=== PATIENT | female | born 1995 | race Caucasian/White ===

== ENCOUNTER 2016-12-16 05:28 | Outpatient (CLI) | payer BC ==
[~2016-12-16] VITALS: Ht 175.3 cm; Wt 86.2 kg
[~2016-12-16 05:28] MED LIST: BENZ100C8 PO; BUTA1CAP45 PO; CEPH500C PO; CETI10TA17 PO; CETI10TA20 PO; CLN2C40 PV; CODE-54 PO; CPR500T PO; FAMO20TA5 PO; GFN600TCR PO; HYDR-3583 PO; IBUP-1773 PO; IBUP-30 PO; LEVO500T69 PO; METR500T PO; NAPR220T29 PO; NAPR550T PO; NITR-65 PO; NORG1TAB7 PO; NS.65NA45; OCP; OMEP20TA2 PO; ONDA-42 SL; PHEN200T27 PO; PRD20T PO; PREN1TAB71 PO; RT-COMBINH IH; SCR1T PO; TRAM50TA2 PO; TRIA10.8 NS; allergy med; antacid
[2016-12-21] MEDS ORDERED: NORG1TAB14 PO (09:26)
[2016-12-21] MEDS ORDERED: OXYC-465 PO (09:26)
[2016-12-21] MEDS ORDERED: DOCU100C37 PO (09:26)
[2016-12-21] MEDS ORDERED: DIPH25TA27 PO (09:26)
[2016-12-21] MEDS ORDERED: IBUP-1780 PO (09:26)
== END 2016-12-16 09:51 ==
LOC: PREOP 05:28
PROVIDERS: ATTEND Obstetrics & Gynecology
DX: N80.0 Endometriosis of uterus; D64.9 Anemia, unspecified; R10.2 Pelvic and perineal pain; Z01.818 Encounter for other preprocedural examination

== ENCOUNTER 2016-12-20 11:12 | Day surgery (SDC) | payer BC ==
[~2016-12-20] VITALS: Ht 175.3 cm; Wt 86.2 kg
--- OUTSIDE RECORDS SUMMARY | 2016-12-20 11:21 | XMS REPORT ---
Author NIKO Edgar [facility] eClinicalWorks Address Unknown Phone Unavailable Care Team Providers Care Actuary Name Role Phone NIKO KELLEY Unavailable Allergies, Adverse Reactions, Alerts Substance Reaction Event Type Zithromax Z-amanda Info Not Available Drug Allergy Sulfamethoxazole Info Not Available Drug Allergy Penicillin V Potassium Info Not Available Drug Allergy Keflex Info Not Available Drug Allergy Cephalexin Info Not Available Drug Allergy Amoxicillin Info Not Available Drug Allergy Ranitidine Info Not Available Drug Allergy Problems Problem Type Condition Code Onset Dates Condition Status Problem Tobacco use disorder complicating , childbirth, or the puerperium, unspecified as to episode of care or not applicable 649.00 Active Assessment Obesity E66.9 Active Problem Examination, general medical Z00.00 Active Medications Medication Code System Code Instructions Start Date End Date Status Dosage Cipro [facility] [address]-16 250 MG Orally every 12 hrs May 09, 2015 May 19, 2015 1 tablet Naproxen [facility] [address]-70 500 mg August 24, 2014 take 1 tablet ( 500 mg) by oral route 2 times per day with food Diethylpropion HCl ER [facility] [address]-09 75 MG Orally Once a day 1 tablet Cetirizine HCl [facility] 63523708614 10 MG TAKE ONE TABLET BY MOUTH DAILY Omeprazole [facility] 09255313243 20 MG TAKE ONE CAPSULE BY MOUTH DAILY BEFORE A MEAL Ortho-Cyclen (28) [facility] [address]-66 0.25-35 MG-MCG Orally Once a day Mar 1 tablet Flonase [facility] [address]-92 50 MCG/ACT Nasally Once a day May 09, 2015 1 spray in each nostril Procedures Procedure Coding System Code Date Office Visit, Est Pt., Level 3 CPT-4 47119 May 11, 2015 Vital Signs Date/Time: May 11, 2015 Temperature 98.1 F Weight 189.5 lbs Height 70 in BMI 27.19 Index Blood Pressure Diastolic 76 mmHg Blood Pressure Systolic 114 mmHg Cardiac Monitoring Heart Rate 86 bpm Results No Known Results Summary Purpose eClinicalWorks Submission
--- OUTSIDE RECORDS SUMMARY | 2016-12-20 11:22 | XMS REPORT ---
Author Author NIKO KELLEY [facility] eClinicalWorks Address Unknown Phone Unavailable Care Team Providers Care Plastics Engineering Teacher Name Role Phone NIKO KELLEY CP Unavailable Allergies, Adverse Reactions, Alerts Substance Reaction [...] Condition Code Onset Dates Condition Status Problem Acute sinusitis, unspecified 461.9 Active Problem Tobacco use disorder complicating , childbirth, or the puerperium, unspecified as to episode of care or not applicable 649.00 Active Problem Counseling on substance use and abuse V65.42 Active Problem Urinary tract infection, site not specified 599.0 Active Problem Screening examination for venereal disease V74.5 Active Problem Examination, general medical Z00.00 Active Problem examination or test, positive result V72.42 Active Problem Supervision of other normal V22.1 Active Problem state, incidental V22.2 Active Problem Infections of genitourinary tract in , unspecified as to episode of care 646.60 Active Assessment Obesity E66.9 Active Problem Pain in joint, shoulder region 719.41 Active Problem Cervicalgia 723.1 Active Problem Allergic rhinitis due to pollen 477.0 Active Problem Encounter for removal of intrauterine contraceptive device V25.12 Active Problem Routine follow-up V24.2 Active Problem General counseling for prescription of oral contraceptives V25.01 Active Medications Medication Code System Code Instructions Start Date End Date Status Dosage Naproxen [facility] [address]-09 500 mg August 24, 2014 take 1 tablet ( 500 mg) by oral route 2 times per day with food ZyrTEC NDC 0 10 mg August 24, 2014 1 tablet by Oral route 1 time per day Diethylpropion HCl ER [facility] [address]-85 75 MG Orally Once a day Mar 22, 2015 1 tablet Ortho-Cyclen (28) [facility] [address]-94 0.25-35 MG-MCG Orally Once a day Mar 1 tablet Omeprazole [facility] 05664787703 20 MG TAKE ONE CAPSULE BY MOUTH DAILY BEFORE A MEAL Procedures Procedure Coding System Code Date Office Visit, Est Pt., Level 3 CPT-4 12221 Apr 13, 2015 Vital Signs Date/Time: Apr 13, 2015 Temperature 99.4 F Weight 194.1 lbs Height 70 in BMI 27.85 Index Blood Pressure Diastolic 70 mmHg Blood Pressure Systolic 116 mmHg Cardiac Monitoring Heart Rate 76 bpm Results No Known Results Summary Purpose eClinicalWorks Submission
--- OUTSIDE RECORDS SUMMARY | 2016-12-20 11:22 | XMS REPORT ---
Author Author NIKO KELLEY [facility] eClinicalWorks Address Unknown Phone Unavailable Care Team Providers Care Inventory Coordinator Name Role Phone NIKO KELLEY Unavailable Allergies, Adverse Reactions, Alerts Substance Reaction Event Type Zithromax Z-amanda Info Not Available Drug Allergy Sulfamethoxazole-Trimethoprim Info Not Available Drug Allergy Penicillin V Potassium Info Not Available Drug Allergy Keflex Info Not Available Drug Allergy Cephalexin Info Not Available Drug Allergy Amoxicillin Info Not Available Drug Allergy Ranitidine Info Not Available Drug Allergy Problems Problem Type Condition Code Onset Dates Condition Status Problem Examination, general medical Z00.00 Active Assessment Obesity E66.9 Active Problem Oral contraceptive pill surveillance Z30.41 Active Assessment Allergic rhinitis J30.9 Active Medications Medication Code System Code Instructions Start Date End Date Status Dosage PredniSONE [facility] [address]-69 10 MG Orally twice a day September 19, 2015 September 24, 2015 1 tablet Flonase [facility] [address]-41 50 MCG/ACT Nasally Once a day May 09, 2015 1 spray in each nostril Cyclobenzaprine HCl [facility] [address]-99 10 MG Orally Three times a day 1 tablet Naproxen [facility] [address]-62 500 mg August 24, 2014 take 1 tablet ( 500 mg) by oral route 2 times per day with food Phentermine HCl [facility] [address]-23 37.5 MG Orally Once a day 1 tablet Cetirizine HCl [facility] 19433942508 10 MG TAKE ONE TABLET BY MOUTH DAILY Ibuprofen ND 0 not defined Omeprazole [facility] 59275045074 20 MG TAKE ONE CAPSULE BY MOUTH DAILY BEFORE A MEAL Ortho-Cyclen (28) [facility] [address]-24 0.25-35 MG-MCG Orally Once a day Mar 1 tablet Procedures Procedure Coding System Code Date Office Visit, Est Pt., Level 3 CPT-4 31516 September 19, 2015 Vital Signs Date/Time: September 19, 2015 Temperature 97.8 F Weight 181.0 lbs Height 70 in BMI 25.97 Index Blood Pressure Diastolic 72 mmHg Blood Pressure Systolic 110 mmHg Cardiac Monitoring Heart Rate 74 bpm Results No Known Results Summary Purpose eClinicalWorks Submission
--- OUTSIDE RECORDS SUMMARY | 2016-12-20 11:22 | XMS REPORT ---
Author Author NIKO KELLEY [facility] eClinicalWorks Address Unknown Phone Unavailable Care Team Providers Care Parts Designer Name Role Phone NIKO KELLEY CP Unavailable [...] to episode of care 646.60 Active Assessment Encounter for counseling regarding contraception Z30.9 Active Assessment Examination, general medical Z00.00 Active Assessment Weight gain R63.5 Active Problem Pain in joint, shoulder region 719.41 Active Problem Cervicalgia 723.1 Active Problem Allergic rhinitis due to pollen 477.0 Active Problem Encounter for removal of intrauterine contraceptive device V25.12 Active Problem Routine follow-up V24.2 Active Problem General counseling for prescription of oral contraceptives V25.01 Active Medications Medication Code System Code Instructions Start Date End Date Status Dosage Omeprazole [facility] 10781245280 20 MG TAKE ONE CAPSULE BY MOUTH DAILY BEFORE A MEAL Ortho-Cyclen (28) [facility] [address]-02 0.25-35 MG-MCG Orally Once a day Mar 1 tablet Diethylpropion HCl ER [facility] [address]-07 75 MG Orally Once a day Mar 22, 2015 1 tablet Naproxen [facility] [address]-58 500 mg August 24, 2014 take 1 tablet ( 500 mg) by oral route 2 times per day with food ZyrTEC NDC 0 10 mg August 24, 2014 1 tablet by Oral route 1 time per day Procedures Procedure Coding System Code Date COMPREHEN METABOLIC PANEL CPT-4 82511 Mar 22, 2015 ASSAY THYROID STIM HORMONE CPT-4 90911 Mar 22, 2015 LIPID PANEL CPT-4 15268 Mar 22, 2015 VENIPUNCT, ROUTINE* CPT-4 30962 Mar 22, 2015 Preventive Care Est Pt. Age 18-39 CPT-4 03535 Mar 22, 2015 Vital Signs Date/Time: Mar 22, 2015 Cardiac Monitoring Heart Rate 80 bpm Weight 208.1 lbs Height 70 in BMI 29.86 Index Blood Pressure Diastolic 78 mmHg Blood Pressure Systolic 118 mmHg Results Name Result Date Reference Range Unit Abnormality Flag ROUTINE VENIPUNCTURE Summary Purpose eClinicalWorks Submission
--- OUTSIDE RECORDS SUMMARY | 2016-12-20 11:22 | XMS REPORT ---
Author Author NIKO KELLEY Organization eClinicalWorks Address Unknown Phone Unavailable Care Team Providers Care Furniture Servicer Name Role Phone NIKO KELLEY CP Unavailable [...] Condition Code Onset Dates Condition Status Problem Oral contraceptive pill surveillance Z30.41 Active Problem Examination, general medical Z00.00 Active Problem Overweight (BMI 25.0-29.9) E66.3 Active Assessment Overweight (BMI 25.0-29.9) E66.3 Active Medications Medication Code System Code Instructions Start Date End Date Status Dosage Cyclobenzaprine HCl [facility] [address]-37 10 MG Orally Three times a day 1 tablet Omeprazole [facility] 51152487263 20 MG TAKE ONE CAPSULE BY MOUTH DAILY BEFORE A MEAL Naproxen [facility] [address]-22 500 mg August 24, 2014 take 1 tablet ( 500 mg) by oral route 2 times per day with food Flonase [facility] [address]-18 50 MCG/ACT Nasally Once a day May 09, 2015 1 spray in each nostril Ibuprofen ND 0 not defined Ortho-Cyclen (28) [facility] [address]-85 0.25-35 MG-MCG Orally Once a day Mar 1 tablet Phentermine HCl [facility] [address]-04 37.5 MG Orally Once a day 1 tablet Procedures Procedure Coding System Code Date Office Visit, Est Pt., Level 3 CPT-4 72856 Apr 02, 2016 Vital Signs Date/Time: Apr 02, 2016 Blood Pressure Systolic 120 mmHg Weight 179.0 lbs Height 70 in BMI 25.68 Index Blood Pressure Diastolic 76 mmHg Results No Known Results Summary Purpose eClinicalWorks Submission
--- OUTSIDE RECORDS SUMMARY | 2016-12-20 11:22 | XMS REPORT ---
Author Author NIKO KELLEY Organization eClinicalWorks Address Unknown Phone Unavailable Care Team Providers Care Quill Collector Name Role Phone NIKO KELLEY CP Unavailable [...] Instructions Start Date End Date Status Dosage Cetirizine HCl [facility] 59150801041 10 MG TAKE ONE TABLET BY MOUTH DAILY Omeprazole [facility] 91878545292 20 MG TAKE ONE CAPSULE BY MOUTH DAILY BEFORE A MEAL Ortho-Cyclen (28) [facility] [address]-91 0.25-35 MG-MCG Orally Once a day Mar 1 tablet Flonase [facility] [address]-37 50 MCG/ACT Nasally Once a day May 09, 2015 1 spray in each nostril Diethylpropion HCl ER [facility] [address]-98 75 MG Orally Once a day 1 tablet Naproxen [facility] [address]-94 500 mg August 24, 2014 take 1 tablet ( 500 mg) by oral route 2 times per day with food Procedures Procedure Coding System Code Date Office Visit, Est Pt., Level 3 CPT-4 00232 Jun 13, 2015 Vital Signs Date/Time: Jun 13, 2015 Temperature 97 F Weight 173.2 lbs Height 70 in BMI 24.85 Index Blood Pressure Diastolic 74 mmHg Blood Pressure Systolic 114 mmHg Cardiac Monitoring Heart Rate 80 bpm Results No Known Results Summary Purpose eClinicalWorks Submission
--- OUTSIDE RECORDS SUMMARY | 2016-12-20 11:22 | XMS REPORT ---
Author Author NIKO KELLEY [facility] eClinicalWorks Address Unknown Phone Unavailable Care Team Providers Care Postal Clerk Name Role Phone NIKO KELLEY Unavailable Allergies, [...] Problem Overweight (BMI 25.0-29.9) E66.3 Active Assessment Vaginal discharge N89.8 Active Medications Medication Code System Code Instructions Start Date End Date Status Dosage Cyclobenzaprine HCl [facility] [address]-93 10 MG Orally Three times a day 1 tablet Ibuprofen NDC 0 not defined Diflucan [facility] [address]-18 150 MG Orally Once a day Jan 16, 2016 Jan 19, 2016 1 tablet Naproxen [facility] [address]-63 500 mg August 24, 2014 take 1 tablet ( 500 mg) by oral route 2 times per day with food Omeprazole [facility] 52575634547 20 MG TAKE ONE CAPSULE BY MOUTH DAILY BEFORE A MEAL Flonase [facility] [address]-48 50 MCG/ACT Nasally Once a day May 09, 2015 1 spray in each nostril Phentermine HCl [facility] [address]-22 37.5 MG Orally Once a day January 03, 2016 Jan 31, 2016 1 tablet Flagyl [facility] [address]-68 500 MG Orally 2 times a day Jan 16, 2016 Jan 23, 2016 1 tablet Ortho-Cyclen (28) [facility] [address]-17 0.25-35 MG-MCG Orally Once a day Mar 1 tablet Procedures Procedure Coding System Code Date TRICHOMONAS ASSAY W/OPTIC CPT-4 44351 Jan 16, 2016 KELLER VAG, DNA, DIR PROBE CPT-4 15820 Jan 16, 2016 No Charge CPT-4 65691 Jan 16, 2016 Office Visit, Est Pt., Level 4 CPT-4 70293 Jan 16, 2016 CULTURE, BACTERIA, OTHER CPT-4 49811 Jan 16, 2016 Vital Signs Date/Time: Jan 16, 2016 Cardiac Monitoring Heart Rate 78 bpm Weight 197.0 lbs Height 70 in BMI 28.26 Index Blood Pressure Diastolic 70 mmHg Blood Pressure Systolic 118 mmHg Results No Known Results Summary Purpose eClinicalWorks Submission
--- OUTSIDE RECORDS SUMMARY | 2016-12-20 11:22 | XMS REPORT ---
Author Author NIKO KELLEY Organization eClinicalWorks Address Unknown Phone Unavailable Care Team Providers Care Pneumatic Jacketer Name Role Phone NIKO KELLEY CP Unavailable Allergies No Known Allergies Problems Problem Type Condition Code Onset Dates [...] as to episode of care 646.60 Active Problem Pain in joint, shoulder region 719.41 Active Problem Cervicalgia 723.1 Active Problem Allergic rhinitis due to pollen 477.0 Active Problem Encounter for removal of intrauterine contraceptive device V25.12 Active Problem Routine follow-up V24.2 Active Problem General counseling for prescription of oral contraceptives V25.01 Active Medications No Known Medications Results No Known Results Summary Purpose eClinicalWorks Submission
--- OUTSIDE RECORDS SUMMARY | 2016-12-20 11:23 | XMS REPORT ---
Author Author NIKO KELLEY Organization eClinicalWorks Address Unknown Phone Unavailable Care Team Providers Care Inside Parts Sales Name Role Phone NIKO KELLEY CP Unavailable [...]
--- OUTSIDE RECORDS SUMMARY | 2016-12-20 11:23 | XMS REPORT ---
Author SEBASTIAN Cantrell Organization eClinicalWorks Address Unknown Phone Unavailable Care Team Providers Care Spinning Operator Name Role Phone SEBASTINA COLLINS CP Unavailable Allergies, Adverse Reactions, Alerts Substance [...] to episode of care 646.60 Active Assessment Sinusitis J32.9 Active Problem Pain in joint, shoulder region 719.41 Active Problem Cervicalgia 723.1 Active Problem Allergic rhinitis due to pollen 477.0 Active Problem Encounter for removal of intrauterine contraceptive device V25.12 Active Problem Routine follow-up V24.2 Active Problem General counseling for prescription of oral contraceptives V25.01 Active Medications Medication Code System Code Instructions Start Date End Date Status Dosage Flonase [facility] [address]-28 50 MCG/ACT Nasally Once a day May 09, 2015 1 spray in each nostril Ibuprofen NDC 0 not defined Omeprazole [facility] 17757250045 20 MG TAKE ONE CAPSULE BY MOUTH DAILY BEFORE A MEAL Diethylpropion HCl ER [facility] [address]-17 75 MG Orally Once a day Mar 22, 2015 1 tablet Cipro [facility] [address]-60 250 MG Orally every 12 hrs May 09, 2015 May 19, 2015 1 tablet Naproxen [facility] [address]-05 500 mg August 24, 2014 take 1 tablet ( 500 mg) by oral route 2 times per day with food Ortho-Cyclen (28) [facility] [address]-47 0.25-35 MG-MCG Orally Once a day Mar 1 tablet ZyrTEC [facility] 0 10 mg August 24, 2014 1 tablet by Oral route 1 time per day Cetirizine HCl [facility] 55439434297 10 MG TAKE ONE TABLET BY MOUTH DAILY Procedures Procedure Coding System Code Date Office Visit, Est Pt., Level 3 CPT-4 07711 May 09, 2015 Vital Signs Date/Time: May 09, 2015 Temperature 98.4 F Weight 190.0 lbs Height 70 in BMI 27.26 Index Blood Pressure Diastolic 72 mmHg Blood Pressure Systolic 110 mmHg Cardiac Monitoring Heart Rate 120 bpm Results No Known Results Summary Purpose eClinicalWorks Submission
--- OUTSIDE RECORDS SUMMARY | 2016-12-20 11:23 | XMS REPORT ---
Author Author NIKO KELLEY Organization eClinicalWorks Address Unknown Phone Unavailable Care Team Providers Care Salesperson Household Appliances Name Role Phone NIKO KELLEY CP Unavailable Allergies No Known Allergies Problems Problem Type Condition Code Onset Dates Condition Status Problem Tobacco use disorder complicating , childbirth, or the puerperium, unspecified as to episode of care or not applicable 649.00 Active Problem Examination, general medical Z00.00 Active Medications No Known Medications Results No Known Results Summary Purpose eClinicalWorks Submission
--- OUTSIDE RECORDS SUMMARY | 2016-12-20 11:23 | XMS REPORT ---
Author Author NIKO KELLEY [facility] Address [address] [place] [address] Care Team Providers Care Office Supervisor Name Role Phone NIKO KELLEY Unavailable PROBLEMS Type Condition ICD9-CM Code [id number] Code Onset Dates Condition Status SNOMED Code Problem Overweight (BMI 25.0-29.9) E66.3 Active 200257024 Problem Oral contraceptive pill surveillance Z30.41 Active 957428013 Problem Examination, general medical Z00.00 Active 985852419 Assessment Overweight (BMI 25.0-29.9) E66.3 Feb, Active 211015325 ALLERGIES Substance Reaction Event Type Date Status Zithromax Z-amanda Unknown Drug Allergy Feb, Active Sulfamethoxazole-Trimethoprim Unknown Drug Allergy Feb, Active Penicillin V Potassium Unknown Drug Allergy Feb, Active Keflex Unknown Drug Allergy Feb, Active Cephalexin Unknown Drug Allergy Feb, Active Amoxicillin Unknown Drug Allergy Feb, Active Ranitidine Unknown Drug Allergy Feb, Active SOCIAL HISTORY No smoking Hx information available PLAN OF CARE VITAL SIGNS Height 70 in 2016-02-28 Weight 185.6 lbs 2016-02-28 Heart Rate 70 bpm 2016-02-28 Respiratory Rate 18 2016-02-28 BMI 26.63 kg/m2 2016-02-28 Blood pressure systolic 118 mmHg 2016-02-28 Blood pressure diastolic 76 mmHg 2016-02-28 MEDICATIONS Medication Instructions Dosage Frequency Start Date End Date Duration Status Ibuprofen Active Phentermine HCl 37.5 MG Orally Once a day 1 tablet 24h 28 days Active Flonase 50 MCG/ACT Nasally Once a day 1 spray in each nostril 24h May, Active Ortho-Cyclen (28) 0.25-35 MG-MCG Orally Once a day 1 tablet 24h 14 Mar, 2015 Active Cyclobenzaprine HCl 10 MG Orally Three times a day 1 tablet 8h Active Omeprazole 20 MG TAKE ONE CAPSULE BY MOUTH DAILY BEFORE A MEAL 30 Active Naproxen 500 mg take 1 tablet (500 mg) by oral route 2 times per day with food Aug, Active RESULTS No Results PROCEDURES Procedure Date Ordered Related Diagnosis Body Site Office Visit, Est Pt., Level 3 Feb 28, 2016 IMMUNIZATIONS No Known Immunizations
--- OUTSIDE RECORDS SUMMARY | 2016-12-20 11:23 | XMS REPORT ---
Author Author NIKO KELLEY Organization eClinicalWorks Address Unknown Phone Unavailable Care Team Providers Care Party Plan Sales Agent Name Role Phone NIKO KELLEY CP Unavailable [...] Instructions Start Date End Date Status Dosage Ortho-Cyclen (28) [facility] [address]-45 0.25-35 MG-MCG Orally Once a day Mar 1 tablet Flonase [facility] [address]-08 50 MCG/ACT Nasally Once a day May 09, 2015 1 spray in each nostril Naproxen [facility] [address]-94 500 mg August 24, 2014 take 1 tablet ( 500 mg) by oral route 2 times per day with food Cyclobenzaprine HCl [facility] [address]-29 10 MG Orally Three times a day 1 tablet Phentermine HCl [facility] [address]-90 37.5 MG Orally Once a day Feb 28, 2016 1 tablet Ibuprofen ND 0 not defined Omeprazole [facility] 47182291708 20 MG TAKE ONE CAPSULE BY MOUTH DAILY BEFORE A MEAL Procedures Procedure Coding System Code Date Office Visit, Est Pt., Level 3 CPT-4 99440 Jan 31, 2016 Vital Signs Date/Time: Jan 31, 2016 Cardiac Monitoring Heart Rate 77 bpm Weight 190.4 lbs Height 70 in BMI 27.32 Index Blood Pressure Diastolic 78 mmHg Blood Pressure Systolic 121 mmHg Results No Known Results Summary Purpose eClinicalWorks Submission
--- OUTSIDE RECORDS SUMMARY | 2016-12-20 11:23 | XMS REPORT ---
Author Author SON CONTRERAS [facility] eClinicalWorks Address Unknown Phone Unavailable Care Team Providers Care Customer Service Representative Teacher Name Role Phone SON CONTRERAS Unavailable Allergies, Adverse Reactions, Alerts Substance Reaction [...] Problem Examination, general medical Z00.00 Active Assessment Well woman exam Z01.419 Active Problem Oral contraceptive pill surveillance Z30.41 Active Assessment Dysmenorrhea N94.6 Active Assessment Routine screening for STI (sexually transmitted infection) Z11.3 Active Assessment Encounter for screening for malignant neoplasm of cervix Z12.4 Active Assessment Oral contraceptive pill surveillance Z30.41 Active Medications Medication Code System Code Instructions Start Date End Date Status Dosage Cetirizine HCl [facility] 57727422598 10 MG TAKE ONE TABLET BY MOUTH DAILY Cyclobenzaprine HCl [facility] [address]-63 10 MG Orally Three times a day 1 tablet Naproxen [facility] [address]-30 500 mg August 24, 2014 take 1 tablet ( 500 mg) by oral route 2 times per day with food Omeprazole [facility] 89638524034 20 MG TAKE ONE CAPSULE BY MOUTH DAILY BEFORE A MEAL Diethylpropion HCl ER [facility] [address]-18 75 MG Orally Once a day 1 tablet Ortho-Cyclen (28) [facility] [address]-08 0.25-35 MG-MCG Orally Once a day Mar 1 tablet Flonase [facility] [address]-03 50 MCG/ACT Nasally Once a day May 09, 2015 1 spray in each nostril Procedures Procedure Coding System Code Date URINE TEST CPT-4 45762 Jul 05, 2015 Preventive Care Est Pt. Age 18-39 CPT-4 89453 Jul 05, 2015 SPECIMEN HANDLING CPT-4 13055 Jul 05, 2015 No Charge CPT-4 48944 Jul 05, 2015 Vital Signs Date/Time: Jul 05, 2015 Temperature 97.1 F Weight 187.6 lbs Height 70 in BMI 26.91 Index Blood Pressure Diastolic 76 mmHg Blood Pressure Systolic 115 mmHg Cardiac Monitoring Heart Rate 84 bpm Results Name Result Date Reference Range Unit Abnormality Flag PDF Report ----PDF Report1 [facility] [id number] TEST, URINE (IN HOUSE) ----RESULTS negative [id number] ----Lot # [id number] ----Control + [id number] ----Exp date [id number] PAP TEST, HPV IF ASCUS ----. . [id number] Summary Purpose eClinicalWorks Submission
--- OUTSIDE RECORDS SUMMARY | 2016-12-20 11:24 | XMS REPORT ---
Author ERIC Moluton Organization e[employer] Address Unknown Phone Unavailable Care Team Providers Care Transformer Molder Name Role Phone ERIC ALVARADO CP Unavailable Allergies No Known Allergies Problems Problem Type Condition Code Onset Dates Condition Status Problem Oral contraceptive pill surveillance Z30.41 Active Problem Examination, general medical Z00.00 Active Problem Overweight (BMI 25.0-29.9) E66.3 Active Medications Medication Code System Code Instructions Start Date End Date Status Dosage Ortho-Cyclen (28) [facility] [address]-36 0.25-35 MG-MCG Orally Once a day Mar 1 tablet Results No Known Results Summary Purpose eClinicalWorks Submission
--- OUTSIDE RECORDS SUMMARY | 2016-12-20 11:24 | XMS REPORT ---
Author Author NIKO KELLEY Organization [employer] Address Unknown Phone Unavailable Care Team Providers Care Medical Physicist Name Role Phone NIKO KELLEY CP Unavailable Allergies No Known Allergies Problems Problem Type Condition Code Onset Dates Condition Status Problem Examination, general medical Z00.00 Active Problem Oral contraceptive pill surveillance Z30.41 Active Medications Medication Code System Code Instructions Start Date End Date Status Dosage Fexofenadine HCl [facility] [address]-58 180 MG Orally Once a day September 28, 2015 December 27, 2015 1 tablet as needed Results No Known Results Summary Purpose eClinicalWorks Submission
--- OUTSIDE RECORDS SUMMARY | 2016-12-20 11:24 | XMS REPORT ---
Author Author NIKO KELLEY [facility] Address [address] [place] [address] Care Team Providers Care Melter Caster Name Role Phone NIKO KELLEY Unavailable PROBLEMS Type Condition ICD9-CM Code [id number] Code Onset Dates Condition Status SNOMED Code Problem Overweight (BMI 25.0-29.9) E66.3 Active 294954538 Problem Oral contraceptive pill surveillance Z30.41 Active 203097437 Problem Examination, general medical Z00.00 Active 231099740 Assessment General medical exam Z00.00 Feb, Active 493546006 ALLERGIES Substance Reaction Event Type Date Status [...] OF CARE VITAL SIGNS Height 70 in 2016-02-29 Weight 188.1 lbs 2016-02-29 Heart Rate 72 bpm 2016-02-29 Respiratory Rate 18 2016-02-29 BMI 26.99 kg/m2 2016-02-29 Blood pressure systolic 112 mmHg 2016-02-29 Blood pressure diastolic 70 mmHg 2016-02-29 MEDICATIONS Medication Instructions Dosage Frequency Start Date End Date Duration Status Cyclobenzaprine HCl 10 MG Orally Three times a day 1 tablet 8h Active Naproxen 500 mg take 1 tablet (500 mg) by oral route 2 times per day with food Aug, Active Flonase 50 MCG/ACT Nasally Once a day 1 spray in each nostril 24h May, Active Omeprazole 20 MG TAKE ONE CAPSULE BY MOUTH DAILY BEFORE A MEAL 30 Active Ortho-Cyclen (28) 0.25-35 MG-MCG Orally Once a day 1 tablet 24h 14 Mar, 2015 Active Phentermine HCl 37.5 MG Orally Once a day 1 tablet 24h 28 days Active Ibuprofen Active RESULTS Name Result Date Reference Range TSH 2016-02-29 TSH 1.920 0.450-4.500 CBC 2016-02-29 WBC 8.0 3.4-10.8 RBC 4.75 3.77-5.28 Hemoglobin 12.8 11.1-15.9 Hematocrit 39.5 34.0-46.6 MCV 83 79-97 MCH 26.9 26.6-33.0 MCHC 32.4 31.5-35.7 RDW 14.5 12.3-15.4 Platelets 251 150-379 Neutrophils 82 Lymphs 13 Monocytes 4 Eos 1 Basos 0 Neutrophils (Absolute) 6.5 1.4-7.0 Lymphs (Absolute) 1.1 0.7-3.1 Monocytes(Absolute) 0.3 0.1-0.9 Eos (Absolute) 0.1 0.0-0.4 Baso (Absolute) 0.0 0.0-0.2 Immature Granulocytes 0 Immature Grans (Abs) 0.0 0.0-0.1 LIPID PANEL 2016-02-29 Cholesterol, Total 223 100-199 Triglycerides 97 0-149 HDL Cholesterol 54 >39 VLDL Cholesterol Brian 19 5-40 LDL Cholesterol Calc 150 0-99 CMP 2016-02-29 Glucose, Serum 88 65-99 BUN 5 6-20 Creatinine, Serum 0.78 0.57-1.00 eGFR If NonAfricn Am 108 >59 eGFR If Africn Am 125 >59 BUN/Creatinine Ratio 6 8-20 Sodium, Serum 139 134-144 Potassium, Serum 4.0 3.5-5.2 Chloride, Serum 98 97-108 Carbon Dioxide, Total 23 18-29 Calcium, Serum 9.3 8.7-10.2 Protein, Total, Serum 7.4 6.0-8.5 Albumin, Serum 4.4 3.5-5.5 Globulin, Total 3.0 1.5-4.5 A/G Ratio 1.5 1.1-2.5 Bilirubin, Total 0.4 0.0-1.2 Alkaline Phosphatase, S 67 39-117 AST (SGOT) 18 0-40 ALT (SGPT) 24 0-32 PROCEDURES Procedure Date Ordered Related Diagnosis Body Site LIPID PANEL Feb 29, 2016 COMPREHEN METABOLIC PANEL Feb 29, 2016 ASSAY THYROID STIM HORMONE Feb 29, 2016 COMPLETE CBC W/AUTO DIFF WBC Feb 29, 2016 Preventive Care Est Pt. Age 18-39 Feb 29, 2016 VENIPUNCT, ROUTINE* Feb 29, 2016 IMMUNIZATIONS No Known Immunizations
--- OUTSIDE RECORDS SUMMARY | 2016-12-20 11:24 | XMS REPORT ---
Author Author NIKO KELLEY Organization eClinicalWorks Address Unknown Phone Unavailable Care Team Providers Care County Historian Name Role Phone NIKO KELLEY Unavailable Allergies, [...] Start Date End Date Status Dosage Omeprazole [facility] 40344427207 20 MG TAKE ONE CAPSULE BY MOUTH DAILY BEFORE A MEAL Naproxen [facility] [address]-31 500 mg August 24, 2014 take 1 tablet ( 500 mg) by oral route 2 times per day with food Flonase [facility] [address]-71 50 MCG/ACT Nasally Once a day May 09, 2015 1 spray in each nostril Ibuprofen ND 0 not defined Cyclobenzaprine HCl [facility] [address]-45 10 MG Orally Three times a day 1 tablet Phentermine HCl [facility] [address]-32 37.5 MG Orally Once a day January 03, 2016 Jan 31, 2016 1 tablet Ortho-Cyclen (28) [facility] [address]-60 0.25-35 MG-MCG Orally Once a day Mar 1 tablet Procedures Procedure Coding System Code Date Office Visit, Est Pt., Level 3 CPT-4 65498 January 03, 2016 Vital Signs Date/Time: January 03, 2016 Cardiac Monitoring Heart Rate 70 bpm Weight 196.9 lbs Height 70 in BMI 28.25 Index Blood Pressure Diastolic 70 mmHg Blood Pressure Systolic 110 mmHg Results No Known Results Summary Purpose eClinicalWorks Submission
--- OUTSIDE RECORDS SUMMARY | 2016-12-20 11:24 | XMS REPORT ---
Author Author NIKO KELLEY Organization [employer] Address Unknown Phone Unavailable Care Team Providers Care Evp Business Development Name Role Phone NIKO KELLEY CP Unavailable [...]
--- OUTSIDE RECORDS SUMMARY | 2016-12-20 11:25 | XMS REPORT | Continuity of Care Document ---
Author Author [facility] Address Unknown Phone Unavailable Allergies Active Description Code Type Severity Reaction Onset Reported/Identified Relationship to Patient Clinical Status Yes Amoxicillin Drug Allergy N/A N/A 12/23/2011 Yes Cephalexin Drug Allergy N/A N/A 12/23/2011 Yes Keflex Drug Allergy N/A N/A 12/23/2011 Yes Penicillins Drug Allergy N/A N/A 12/23/2011 Yes Pertussis Vaccine,Fluid Drug Allergy N/A N/A 12/23/2011 Yes ranitidine Drug Allergy N/A N/A 12/23/2011 Yes Sulfa(Sulfonamide Antibiotics) Drug Allergy N/A N/A 12/23/2011 Yes Zithromax Z-Quentin Drug Allergy N/A N/A 12/23/2011 Yes amoxicillin [id number] Drug Allergy Moderate rash 03/01/2012 Yes Cephalexin Monohydrate [id number] Drug Allergy Moderate N/ A 03/01/2012 Yes azithromycin [id number] Drug Allergy Mild N/A 03/01/2012 Yes pertussis vaccine,adsorbed [id number] Drug Allergy Mild N/A 03/01/2012 Yes ranitidine [id number] Drug Allergy Mild N/A 03/01/2012 Yes Sulfa (Sulfonamide Antibiotics) [id number] Drug Allergy Mild N/A 03/01/2012 Medications Problems Date Dx Coded Attending Type Code Diagnosis Diagnosed By 02/03/2008 922.1 CONTUSION OF CHEST WALL 02/03/2008 BURTON HERRERA APRN 922.1 CONTUSION OF CHEST WALL 02/03/2008 BURTON HERRERA APRN 922.1 CONTUSION OF CHEST WALL 02/03/2008 ERIC ALVARADO DO 922.1 CONTUSION OF CHEST WALL 02/03/2008 BURTON HERRERA APRN 922.1 CONTUSION OF CHEST WALL 02/03/2008 BURTON HERRERA APRN 922.1 CONTUSION OF CHEST WALL 02/03/2008 JAVIER CHEMICAL PROCESS ENGINEER, BURTON A 922.1 CONTUSION OF CHEST WALL 02/03/2008 MORRIS ALVARADO DOA K 922.1 CONTUSION OF CHEST WALL 02/03/2008 MORRIS ALVARADO DOA K 922.1 CONTUSION OF CHEST WALL 02/03/2008 MORRIS ALVARADO DOA K 922.1 CONTUSION OF CHEST WALL 02/03/2008 LAUREL PIMENTEL MD 922.1 CONTUSION OF CHEST WALL 02/03/2008 LAUREL PIMENTEL MD 922.1 CONTUSION OF CHEST WALL 02/03/2008 922.1 CONTUSION OF CHEST WALL 02/03/2008 LAUREL PIMENTEL MD 922.1 CONTUSION OF CHEST WALL 02/03/2008 LAUREL PIMENTEL MD 922.1 CONTUSION OF CHEST WALL 02/03/2008 LAUREL PIMENTEL MD 922.1 CONTUSION OF CHEST WALL 02/03/2008 LAUREL PIMENTEL MD 922.1 CONTUSION OF CHEST WALL 02/03/2008 ERIC ALVARADO DO K 922.1 CONTUSION OF CHEST WALL 02/03/2008 JAVIER CHEMICAL PROCESS ENGINEER, BURTON A 922.1 CONTUSION OF CHEST WALL 02/03/2008 VAMSHI GODFREY, MASSIEL Dale 922.1 CONTUSION OF CHEST WALL 02/03/2008 ERIC ALVARADO DO K 922.1 CONTUSION OF CHEST WALL 02/03/2008 THANG ESTEVES APRN 922.1 CONTUSION OF CHEST WALL 02/17/2008 462 PHARYNGITIS ACUTE 02/17/2008 JAVIER CHEMICAL PROCESS ENGINEER, BURTON A 462 PHARYNGITIS ACUTE 02/17/2008 JAVIER CHEMICAL PROCESS ENGINEER, BURTON A 462 PHARYNGITIS ACUTE 02/17/2008 MORRIS ALVARADO DOA K 462 PHARYNGITIS ACUTE 02/17/2008 JAVIER CHEMICAL PROCESS ENGINEER, BURTON A 462 PHARYNGITIS ACUTE 02/17/2008 JAVIER CHEMICAL PROCESS ENGINEER, BURTON A 462 PHARYNGITIS ACUTE 02/17/2008 JAVIER CHEMICAL PROCESS ENGINEER, BURTON A 462 PHARYNGITIS ACUTE 02/17/2008 ERIC ALVARADO DO K 462 PHARYNGITIS ACUTE 02/17/2008 MORRIS ALVARADO DOA K 462 PHARYNGITIS ACUTE 02/17/2008 ERIC ALVARADO DO 462 PHARYNGITIS ACUTE 02/17/2008 MARGARITO GODFREY, LAUREL Buck 462 PHARYNGITIS ACUTE 02/17/2008 MARGARITO GODFREY, LAUREL Buck 462 PHARYNGITIS ACUTE 02/17/2008 462 PHARYNGITIS ACUTE 02/17/2008 MARGARITO GODFREY, LAUREL Buck 462 PHARYNGITIS ACUTE 02/17/2008 MARGARITO GODFREY, LAUREL Buck 462 PHARYNGITIS ACUTE 02/17/2008 MARGARITO GODFREY, LAUREL Buck 462 PHARYNGITIS ACUTE 02/17/2008 MARGARITO GODFREY, LAUREL Buck 462 PHARYNGITIS ACUTE 02/17/2008 ERIC ALVARADO DO 462 PHARYNGITIS ACUTE 02/17/2008 BURTON HERRERA APRN A 462 PHARYNGITIS ACUTE 02/17/2008 VAMSHI GODFREY, MASSIEL Dale 462 PHARYNGITIS ACUTE 02/17/2008 ERIC ALVARADO DO 462 PHARYNGITIS ACUTE 02/17/2008 THANG ESTEVES APRN 462 PHARYNGITIS ACUTE 09/21/2010 Ot 465.9 ACUTE URI NOS 09/21/2010 Ot 704.8 HAIR DISEASES NEC 09/21/2010 Ot 786.2 COUGH 12/23/2011 461.9 SINUSITIS ACUTE 12/23/2011 V65.42 COUNSELING - SMOKING CESSATION 12/23/2011 BURTON HERRERA APRN 461.9 SINUSITIS ACUTE 12/23/2011 BURTON HERRERA APRN V65.42 COUNSELING - SMOKING CESSATION 12/23/2011 BURTON HERRERA APRN A 461.9 SINUSITIS ACUTE 12/23/2011 BURTON HERRERA APRN V65.42 COUNSELING - SMOKING CESSATION 12/23/2011 ERIC ALVARADO DO 461.9 SINUSITIS ACUTE 12/23/2011 ERIC ALVARADO DO V65.42 COUNSELING - SMOKING CESSATION 12/23/2011 BURTON HERRERA APRN 461.9 SINUSITIS ACUTE 12/23/2011 BURTON HERRERA APRN V65.42 COUNSELING - SMOKING CESSATION 12/23/2011 BURTON HERRERA APRN 461.9 SINUSITIS ACUTE 12/23/2011 BURTON HERRERA APRN A V65.42 COUNSELING - SMOKING CESSATION 12/23/2011 BURTON HERRERA APRN A 461.9 SINUSITIS ACUTE 12/23/2011 JAVIERBURTON Dale APRN A V65.42 COUNSELING - SMOKING CESSATION 12/23/2011 ALVARADO DO ERIC K 461.9 SINUSITIS ACUTE 12/23/2011 ALVARADO DO ERIC K V65.42 COUNSELING - SMOKING CESSATION 12/23/2011 ALVARADO DO, ERIC K 461.9 SINUSITIS ACUTE 12/23/2011 ALVARADO DO, ERIC K V65.42 COUNSELING - SMOKING CESSATION 12/23/2011 ALVARADO DO, ERIC K 461.9 SINUSITIS ACUTE 12/23/2011 ALVARADO DO ERIC K V65.42 COUNSELING - SMOKING CESSATION 12/23/2011 LAUREL PIMENTEL MD 461.9 SINUSITIS ACUTE 12/23/2011 LAUREL PIMENTEL MD V65.42 COUNSELING - SMOKING CESSATION 12/23/2011 LAUREL PIMENTEL MD 461.9 SINUSITIS ACUTE 12/23/2011 LAUREL PIMENTEL MD V65.42 COUNSELING - SMOKING CESSATION 12/23/2011 461.9 SINUSITIS ACUTE 12/23/2011 V65.42 COUNSELING - SMOKING CESSATION 12/23/2011 LAUREL PIMENTEL MD 461.9 SINUSITIS ACUTE 12/23/2011 LAUREL PIMENTEL MD V65.42 COUNSELING - SMOKING CESSATION 12/23/2011 LAUREL PIMENTEL MD 461.9 SINUSITIS ACUTE 12/23/2011 LAUREL PIMENTEL MD V65.42 COUNSELING - SMOKING CESSATION 12/23/2011 LAUREL PIMENTEL MD 461.9 SINUSITIS ACUTE 12/23/2011 LAUREL PIMENTEL MD V65.42 COUNSELING - SMOKING CESSATION 12/23/2011 LAUREL PIMENTEL MD 461.9 SINUSITIS ACUTE 12/23/2011 LAUREL PIMENTEL MD V65.42 COUNSELING - SMOKING CESSATION 12/23/2011 ALVARADO MORRIS VELASQUEZA K 461.9 SINUSITIS ACUTE 12/23/2011 ALVARADO DO ERIC K V65.42 COUNSELING - SMOKING CESSATION 12/23/2011 BURTON HERRERA APRN A 461.9 SINUSITIS ACUTE 12/23/2011 BURTON HERRERA APRN A V65.42 COUNSELING - SMOKING CESSATION 12/23/2011 MASSIEL BONDS MD 461.9 SINUSITIS ACUTE 12/23/2011 MASSIEL BONDS MD V65.42 COUNSELING - SMOKING CESSATION 12/23/2011 ERIC ALVARADO DO 461.9 SINUSITIS ACUTE 12/23/2011 ERIC ALVARADO DO V65.42 COUNSELING - SMOKING CESSATION 12/23/2011 THANG ESTEVES APRN 461.9 SINUSITIS ACUTE 12/23/2011 THANG ESTEVES APRN V65.42 COUNSELING - SMOKING CESSATION 03/02/2012 Ot 465.9 ACUTE URI NOS 03/02/2012 Ot 789.09 ABDOMINAL PAIN, OTHER SPECIFIED SITE 07/25/2012 Ot 789.01 ABDOMINAL PAIN, RIGHT UPPER QUADRANT 02/15/2013 DIONI HURTADO Ot 599.0 URIN TRACT INFECTION NOS 02/15/2013 DIONI HURTADO Ot 788.1 DYSURIA 02/17/2013 ALVARO RAMOS DO Ot 599.0 URIN TRACT INFECTION NOS 02/17/2013 ALVARO RAMOS DO Ot 788.20 RETENTION OF URINE NOS 02/22/2013 V25.01 CONTRACEPTION - ORAL CONTRACEPTION 02/22/2013 V25.12 IUD REMOVAL 02/22/2013 BURTON HERRERA APRN A V25.01 CONTRACEPTION - ORAL CONTRACEPTION 02/22/2013 BURTON HERRERA APRN A V25.12 IUD REMOVAL 02/22/2013 BURTON HERRERA APRN A V25.01 CONTRACEPTION - ORAL CONTRACEPTION 02/22/2013 MONICA HERRERA APRNIDI A V25.12 IUD REMOVAL 02/22/2013 ERIC ALVARADO DO V25.01 CONTRACEPTION - ORAL CONTRACEPTION 02/22/2013 ERIC ALVARADO DO V25.12 IUD REMOVAL 02/22/2013 BURTON HERRERA APRN A V25.01 CONTRACEPTION - ORAL CONTRACEPTION 02/22/2013 BURTON HERRERA APRN A V25.12 IUD REMOVAL 02/22/2013 BURTON HERRERA APRN A V25.01 CONTRACEPTION - ORAL CONTRACEPTION 02/22/2013 BURTON HERRERA APRN A V25.12 IUD REMOVAL 02/22/2013 JAVIER LÓPEZ, BURTON A V25.01 CONTRACEPTION - ORAL CONTRACEPTION 02/22/2013 MONICA HERRERA APRNIDI A V25.12 IUD REMOVAL 02/22/2013 ALVARADO DO, ERIC K V25.01 CONTRACEPTION - ORAL CONTRACEPTION 02/22/2013 ALVARADO DO, ERIC K V25.12 IUD REMOVAL 02/22/2013 ALVARADO DO, ERIC K V25.01 CONTRACEPTION - ORAL CONTRACEPTION 02/22/2013 ALVARADO DO, ERIC K V25.12 IUD REMOVAL 02/22/2013 ALVARADO DO, ERIC K V25.01 CONTRACEPTION - ORAL CONTRACEPTION 02/22/2013 ALVARADO DO, ERIC K V25.12 IUD REMOVAL 02/22/2013 MARGARITO GODFREY, LAUREL Buck V25.01 CONTRACEPTION - ORAL CONTRACEPTION 02/22/2013 MARGARITO GODFREY, LAUREL Buck V25.12 IUD REMOVAL 02/22/2013 MARGARITO GODFREY, LAUREL Buck V25.01 CONTRACEPTION - ORAL CONTRACEPTION 02/22/2013 MARGARITO GODFREY, LAUREL Buck V25.12 IUD REMOVAL 02/22/2013 V25.01 CONTRACEPTION - ORAL CONTRACEPTION 02/22/2013 V25.12 IUD REMOVAL 02/22/2013 MARGARITO GODFREY, LAUREL Buck V25.01 CONTRACEPTION - ORAL CONTRACEPTION 02/22/2013 MARGARITO GODFREY, LAUREL Buck V25.12 IUD REMOVAL 02/22/2013 LAUREL PIMENTEL MD V25.01 CONTRACEPTION - ORAL CONTRACEPTION 02/22/2013 LAUREL PIMENTEL MD V25.12 IUD REMOVAL 02/22/2013 LAUREL PIMENTEL MD V25.01 CONTRACEPTION - ORAL CONTRACEPTION 02/22/2013 LAUREL PIMENTEL MD V25.12 IUD REMOVAL 02/22/2013 LAUREL PIMENTEL MD V25.01 CONTRACEPTION - ORAL CONTRACEPTION 02/22/2013 MARGARITO GODFREY, LAUREL Buck V25.12 IUD REMOVAL 02/22/2013 JENNY , ERIC K V25.01 CONTRACEPTION - ORAL CONTRACEPTION 02/22/2013 ALVARADO DO, ERIC K V25.12 IUD REMOVAL 02/22/2013 BURTON HERRERA APRN A V25.01 CONTRACEPTION - ORAL CONTRACEPTION 02/22/2013 BURTON HERRERA APRN A V25.12 IUD REMOVAL 02/22/2013 MASSIEL BONDS MD V25.01 CONTRACEPTION - ORAL CONTRACEPTION 02/22/2013 MASSIEL BONDS MD V25.12 IUD REMOVAL 02/22/2013 ERIC ALVARADO DO V25.01 CONTRACEPTION - ORAL CONTRACEPTION 02/22/2013 ERIC ALVARADO DO V25.12 IUD REMOVAL 02/22/2013 THANG ESTEVES APRN V25.01 CONTRACEPTION - ORAL CONTRACEPTION 02/22/2013 THANG ESTEVES APRN V25.12 IUD REMOVAL 03/16/2013 GREGORIO GODFREY, CARLOS A Ot 461.9 ACUTE SINUSITIS NOS 03/16/2013 GREGORIO GODFREY, CARLOS A Ot 784.0 HEADACHE 03/30/2013 RANDY CEDENO CHEMICAL PROCESS ENGINEER Ot 616.10 VAGINITIS NOS 03/30/2013 RANDY CEDENO CHEMICAL PROCESS ENGINEER Ot 623.5 NONINFECT VAG LEUKORRHEA 04/11/2013 LINETTE WEINER DOA K Ot 599.0 URIN TRACT INFECTION NOS 04/11/2013 REGINE VELASQUEZ ROSA ELENA K Ot 788.1 DYSURIA 04/12/2013 MONICA HERRERA APRNIDI A 599.0 URINARY TRACT INFECTION SITE NOT SPECIFIED 04/12/2013 MONICA HERRERA APRNIDI A 599.0 URINARY TRACT INFECTION SITE NOT SPECIFIED 04/12/2013 MORRIS ALVARADO DOA K 599.0 URINARY TRACT INFECTION SITE NOT SPECIFIED 04/12/2013 MONICA HERRERA APRNIDI A 599.0 URINARY TRACT INFECTION SITE NOT SPECIFIED 04/12/2013 MONICA HERRERA APRNIDI A 599.0 URINARY TRACT INFECTION SITE NOT SPECIFIED 04/12/2013 MONICA HERRERA APRNIDI A 599.0 URINARY TRACT INFECTION SITE NOT SPECIFIED 04/12/2013 MORRIS ALVARADO DOA K 599.0 URINARY TRACT INFECTION SITE NOT SPECIFIED 04/12/2013 MORRIS ALVARADO DOA K 599.0 URINARY TRACT INFECTION SITE NOT SPECIFIED 04/12/2013 MORRIS ALVARADO DOA K 599.0 URINARY TRACT INFECTION SITE NOT SPECIFIED 04/12/2013 LAUREL PIMENTEL MD 599.0 URINARY TRACT INFECTION SITE NOT SPECIFIED 04/12/2013 LAUREL PIMENTEL MD 599.0 URINARY TRACT INFECTION SITE NOT SPECIFIED 04/12/2013 599.0 URINARY TRACT INFECTION SITE NOT SPECIFIED 04/12/2013 LAUREL PIMENTEL MD 599.0 URINARY TRACT INFECTION SITE NOT SPECIFIED 04/12/2013 LAUREL PIMENTEL MD 599.0 URINARY TRACT INFECTION SITE NOT SPECIFIED 04/12/2013 LAUREL PIMENTEL MD 599.0 URINARY TRACT INFECTION SITE NOT SPECIFIED 04/12/2013 LAUREL PIMENTEL MD 599.0 URINARY TRACT INFECTION SITE NOT SPECIFIED 04/12/2013 JENNY VELASQUEZ ERIC K 599.0 URINARY TRACT INFECTION SITE NOT SPECIFIED 04/12/2013 BURTON HERRERA APRN A 599.0 URINARY TRACT INFECTION SITE NOT SPECIFIED 04/12/2013 VAMSHI GODFREY, MASSIEL Dale 599.0 URINARY TRACT INFECTION SITE NOT SPECIFIED 04/12/2013 JENNY VELASQUEZ ERIC K 599.0 URINARY TRACT INFECTION SITE NOT SPECIFIED 04/12/2013 THANG ESTEVES APRN 599.0 URINARY TRACT INFECTION SITE NOT SPECIFIED 06/19/2013 GREGORIO GODFREY, CARLOS Lang Ot 519.11 ACUTE BRONCHOSPASM 06/19/2013 CARLOS PERKINS MD A Ot 786.05 SHORTNESS OF BREATH 07/09/2013 DIONI HURTADO Ot 079.99 VIRAL INFECTION NOS 07/09/2013 DIONI HURTADO Ot 786.2 COUGH 07/19/2013 ALVARADO DO ERIC K V72.42 TEST POSITIVE RESULT 07/19/2013 JAVIER LÓPEZ BURTON A V72.42 TEST POSITIVE RESULT 07/19/2013 JAVIER LÓPEZ BURTON A V72.42 TEST POSITIVE RESULT 07/19/2013 JAVIER LÓPEZ BURTON A V72.42 TEST POSITIVE RESULT 07/19/2013 ALVARADO DO, ERIC K V72.42 TEST POSITIVE RESULT 07/19/2013 ALVARADO DO ERIC K V72.42 TEST POSITIVE RESULT 07/19/2013 ALVARADO DO ERIC K V72.42 TEST POSITIVE RESULT 07/19/2013 LAUREL PIMENTEL MD V72.42 TEST POSITIVE RESULT 07/19/2013 LAUREL PIMENTEL MD V72.42 TEST POSITIVE RESULT 07/19/2013 V72.42 TEST POSITIVE RESULT 07/19/2013 LAUREL PIMENTEL MD V72.42 TEST POSITIVE RESULT 07/19/2013 LAUREL PIMENTEL MD V72.42 TEST POSITIVE RESULT 07/19/2013 LAUREL PIMENTEL MD V72.42 TEST POSITIVE RESULT 07/19/2013 LAUREL PIMENTEL MD V72.42 TEST POSITIVE RESULT 07/19/2013 ALVARADO DO ERCI K V72.42 TEST POSITIVE RESULT 07/19/2013 BURTON HERRERA APRN A V72.42 TEST POSITIVE RESULT 07/19/2013 MASSIEL BONDS MD V72.42 TEST POSITIVE RESULT 07/19/2013 ALVARADO DO ERIC K V72.42 TEST POSITIVE RESULT 07/19/2013 THANG ESTEVES APRN V72.42 TEST POSITIVE RESULT 08/11/2013 BURTON HERRERA APRN A 646.60 COMPL OF - UTI 08/11/2013 BURTON HERRERA APRN A V22.2 INCIDENTAL 08/11/2013 BURTON HERRERA APRN A V74.5 STD SCREEN 08/11/2013 BURTON HERRERA APRN A 646.60 COMPL OF - UTI 08/11/2013 BURTON HERRERA APRN A V22.2 INCIDENTAL 08/11/2013 BURTON HERRERA APRN A V74.5 STD SCREEN 08/11/2013 BURTON HERRERA APRN A 646.60 COMPL OF - UTI 08/11/2013 BURTON HERRERA APRN A V22.2 INCIDENTAL 08/11/2013 BURTON HERRERA APRN A V74.5 STD SCREEN 08/11/2013 ALVARADO DO, ERIC K 646.60 COMPL OF - UTI 08/11/2013 ALVARADO DO, ERIC K V22.2 INCIDENTAL 08/11/2013 ALVARADO DO, ERIC K V74.5 STD SCREEN 08/11/2013 ALVARADO DO, ERIC K 646.60 COMPL OF - UTI 08/11/2013 ALVARADO DO, ERIC K V22.2 INCIDENTAL 08/11/2013 ALVARADO DO, ERIC K V74.5 STD SCREEN 08/11/2013 ALVARADO DO, ERIC K 646.60 COMPL OF - UTI 08/11/2013 ALVARADO DO, ERIC K V22.2 INCIDENTAL 08/11/2013 ALVARADO DO, ERIC K V74.5 STD SCREEN 08/11/2013 LAUREL PIMENTEL MD 646.60 COMPL OF - UTI 08/11/2013 LAUREL PIMENTEL MD V22.2 INCIDENTAL 08/11/2013 LAUREL PIMENTEL MD V74.5 STD SCREEN 08/11/2013 LAUREL PIMENTEL MD 646.60 COMPL OF - UTI 08/11/2013 LAUREL PIMENTEL MD V22.2 INCIDENTAL 08/11/2013 LAUREL PIMENTEL MD V74.5 STD SCREEN 08/11/2013 646.60 COMPL OF - UTI 08/11/2013 V22.2 INCIDENTAL 08/11/2013 V74.5 STD SCREEN 08/11/2013 LAUREL PIMENTEL MD 646.60 COMPL OF - UTI 08/11/2013 LAUREL PIMENTEL MD V22.2 INCIDENTAL 08/11/2013 LAUREL PIMENTEL MD V74.5 STD SCREEN 08/11/2013 LAUREL PIMENTEL MD 646.60 COMPL OF - UTI 08/11/2013 LAUREL PIMENTEL MD V22.2 INCIDENTAL 08/11/2013 LAUREL PIMENTEL MD V74.5 STD SCREEN 08/11/2013 LAUREL PIMENTEL MD 646.60 COMPL OF - UTI 08/11/2013 LAUREL PIMENTEL MD V22.2 INCIDENTAL 08/11/2013 LAUREL PIMENTEL MD V74.5 STD SCREEN 08/11/2013 LAUREL PIMENTEL MD 646.60 COMPL OF - UTI 08/11/2013 LAUREL PIMENTEL MD V22.2 INCIDENTAL 08/11/2013 LAUREL PIMENTEL MD V74.5 STD SCREEN 08/11/2013 ALVARADO DO, ERIC Greco 646.60 COMPL OF - UTI 08/11/2013 ALVARADO DO, ERIC K V22.2 INCIDENTAL 08/11/2013 ALVARADO DO, ERIC K V74.5 STD SCREEN 08/11/2013 BURTON HERRERA APRN 646.60 COMPL OF - UTI 08/11/2013 JAVIER DELACRUZN, BURTON A V22.2 INCIDENTAL 08/11/2013 JAVIER DELACRUZSuyapa BURTON A V74.5 STD SCREEN 08/11/2013 MASSIEL BONDS MD 646.60 COMPL OF - UTI 08/11/2013 VAMSHI GODFREY, MASSIEL Dale V22.2 INCIDENTAL 08/11/2013 MASSIEL BONDS MD V74.5 STD SCREEN 08/11/2013 JENNY VELASQUEZ ERIC K 646.60 COMPL OF - UTI 08/11/2013 ALVARADO DO, ERIC K V22.2 INCIDENTAL 08/11/2013 JENNY VELASQUEZ ERIC K V74.5 STD SCREEN 08/11/2013 THANG ESTEVES APRN 646.60 COMPL OF - UTI 08/11/2013 THANG ESTEVES APRN V22.2 INCIDENTAL 08/11/2013 THANG ESTEVES APRN V74.5 STD SCREEN 08/18/2013 JAVIERMONICA Dale APRNIDI A 649.00 COMPL OF - TOBACCO USE 08/18/2013 JAVIER CHEMICAL PROCESS ENGINEER, BURTON A V22.1 , NORMAL OTHER 08/18/2013 JAVIER CHEMICAL PROCESS ENGINEER, BURTON A 649.00 COMPL OF - TOBACCO USE 08/18/2013 JAVIERSuyapa LÓPEZ BURTON A V22.1 , NORMAL OTHER 08/18/2013 JENNY VELASQUEZ ERIC K 649.00 COMPL OF - TOBACCO USE 08/18/2013 ALVARADO DO, ERIC K V22.1 , NORMAL OTHER 08/18/2013 ALVARADO DO ERIC K 649.00 COMPL OF - TOBACCO USE 08/18/2013 ALVARADO DO, ERIC K V22.1 , NORMAL OTHER 08/18/2013 ALVARADO DO, ERIC K 649.00 COMPL OF - TOBACCO USE 08/18/2013 ALVARADO DO, ERIC K V22.1 , NORMAL OTHER 08/18/2013 LAUREL PIMENTEL MD 649.00 COMPL OF - TOBACCO USE 08/18/2013 LAUREL PIMENTEL MD V22.1 , NORMAL OTHER 08/18/2013 LAUREL PIMENTEL MD 649.00 COMPL OF - TOBACCO USE 08/18/2013 LAUREL PIMENTEL MD V22.1 , NORMAL OTHER 08/18/2013 649.00 COMPL OF - TOBACCO USE 08/18/2013 V22.1 , NORMAL OTHER 08/18/2013 LAUREL PIMENTEL MD 649.00 COMPL OF - TOBACCO USE 08/18/2013 LAUREL PIMENTEL MD V22.1 , NORMAL OTHER 08/18/2013 LAUREL PIMENTEL MD 649.00 COMPL OF - TOBACCO USE 08/18/2013 LAUREL PIMENTEL MD V22.1 , NORMAL OTHER 08/18/2013 LAUREL PIMENTEL MD 649.00 COMPL OF - TOBACCO USE 08/18/2013 LAUREL PIMENTEL MD V22.1 , NORMAL OTHER 08/18/2013 LAUREL PIMENTEL MD 649.00 COMPL OF - TOBACCO USE 08/18/2013 LAUREL IPMENTEL MD V22.1 , NORMAL OTHER 08/18/2013 MORRIS ALVARADO DOA K 649.00 COMPL OF - TOBACCO USE 08/18/2013 MORRIS ALVARADO DOA K V22.1 , NORMAL OTHER 08/18/2013 BURTON HERRERA APRN 649.00 COMPL OF - TOBACCO USE 08/18/2013 BURTON HERRERA APRN A V22.1 , NORMAL OTHER 08/18/2013 MASSIEL BONDS MD 649.00 COMPL OF - TOBACCO USE 08/18/2013 MASSIEL BONDS MD V22.1 , NORMAL OTHER 08/18/2013 MORRIS ALVARADO DOA K 649.00 COMPL OF - TOBACCO USE 08/18/2013 MORRIS ALVARADO DOA K V22.1 , NORMAL OTHER 08/18/2013 THANG ESTEVES APRN 649.00 COMPL OF - TOBACCO USE 08/18/2013 THANG ESTEVES APRN V22.1 , NORMAL OTHER 11/04/2013 MORRIS ALVARADO DOA K 477.0 ALLERGIC RHINITIS DUE TO POLLEN 11/04/2013 JENNY VELASQUEZ ERIC K 477.0 ALLERGIC RHINITIS DUE TO POLLEN 11/04/2013 LAUREL PIMENTEL MD 477.0 ALLERGIC RHINITIS DUE TO POLLEN 11/04/2013 LAUREL PIMENTEL MD 477.0 ALLERGIC RHINITIS DUE TO POLLEN 11/04/2013 477.0 ALLERGIC RHINITIS DUE TO POLLEN 11/04/2013 LAUREL PIMENTEL MD 477.0 ALLERGIC RHINITIS DUE TO POLLEN 11/04/2013 LAUREL PIMENTEL MD 477.0 ALLERGIC RHINITIS DUE TO POLLEN 11/04/2013 LAUREL PIMENTEL MD 477.0 ALLERGIC RHINITIS DUE TO POLLEN 11/04/2013 LAUREL PIMENTEL MD 477.0 ALLERGIC RHINITIS DUE TO POLLEN 11/04/2013 ERIC ALVARADO DO 477.0 ALLERGIC RHINITIS DUE TO POLLEN 11/04/2013 BURTON HERRERA APRN 477.0 ALLERGIC RHINITIS DUE TO POLLEN 11/04/2013 MASSIEL BONDS MD 477.0 ALLERGIC RHINITIS DUE TO POLLEN 11/04/2013 ERIC ALVARADO DO 477.0 ALLERGIC RHINITIS DUE TO POLLEN 11/04/2013 THANG ESTEVES APRN 477.0 ALLERGIC RHINITIS DUE TO POLLEN 01/11/2014 LAUREL PIMENTEL MD Ot 623.5 NONINFECT VAG LEUKORRHEA 01/11/2014 LAUREL PIMENTEL MD Ot 654.73 ABNORM VAGINA-ANTEPARTUM 02/26/2014 LAUREL PIMENTEL MD Ot 644.03 THRT RACHEL LABOR-ANTEPART 03/01/2014 LAUREL PIMENTEL MD, Ot V22.1 SUPERVIS OTH NORMAL PREG 03/05/2014 LAUREL PIMENTEL MD Ot 644.13 THREAT LABOR NEC-ANTEPAR 03/16/2014 LAUREL PIMENTEL MD Ot 648.91 OTH CURR COND-DELIVERED 03/16/2014 LAUREL PIMENTEL MD Ot V02.51 GROUP B STREPT CARRIER/SUSPECTED CARRIER 03/16/2014 LAUREL PIMENTEL MD Ot V27.0 DELIVER-SINGLE LIVEBORN 03/21/2014 MAYRA CHIRINOS MD Ot 786.50 CHEST PAIN NOS 03/21/2014 MAYRA CHIRINOS MD Ot 786.59 CHEST PAIN NEC 04/26/2014 BURTON HERRERA APRN 670.14 PUERPURAL ENDOMETRITIS CONDITION OR COMPLICATION 04/26/2014 MASSIEL BONDS MD 670.14 PUERPURAL ENDOMETRITIS CONDITION OR COMPLICATION 04/26/2014 ERIC ALVARADO DO 670.14 PUERPURAL ENDOMETRITIS CONDITION OR COMPLICATION 04/26/2014 THANG ESTEVES APRN 670.14 PUERPURAL ENDOMETRITIS CONDITION OR COMPLICATION 05/02/2014 JAVIER LÓPEZ BURTON A V24.2 F/U, ROUTINE 05/02/2014 MASSIEL BONDS MD V24.2 F/U, ROUTINE 05/02/2014 ERIC ALVARADO DO V24.2 F/U, ROUTINE 05/02/2014 THANG ESTEVES APRN V24.2 F/U, ROUTINE 05/11/2014 JAVIER BURTON A CHEMICAL PROCESS ENGINEER Ot 649.03 05/11/2014 JAVIER BURTON A CHEMICAL PROCESS ENGINEER Ot V28.81 05/11/2014 JAVIER BURTON A CHEMICAL PROCESS ENGINEER Ot V28.81 05/11/2014 LAUREL PIMENTEL MD Ot V28.81 05/11/2014 JAVIER BURTON A CHEMICAL PROCESS ENGINEER Ot V28.81 05/11/2014 JAVIER BURTON A CHEMICAL PROCESS ENGINEER Ot 649.03 05/11/2014 JAVIER BURTON A CHEMICAL PROCESS ENGINEER Ot V28.81 05/23/2014 JAVIER, BURTON A CHEMICAL PROCESS ENGINEER Ot 649.03 05/23/2014 JAVIER, BURTON A CHEMICAL PROCESS ENGINEER Ot V28.81 05/23/2014 JAVIER BURTON A CHEMICAL PROCESS ENGINEER Ot V28.81 05/23/2014 LAUREL PIMENTEL MD Ot V28.81 05/31/2014 MASSIEL BONDS MD 461.9 SINUSITIS ACUTE 05/31/2014 ERIC ALVARADO DO 461.9 SINUSITIS ACUTE 05/31/2014 THANG ESTEVES APRN 461.9 SINUSITIS ACUTE 06/07/2014 JAVIER BURTON A CHEMICAL PROCESS ENGINEER Ot 649.03 06/07/2014 JAVIER BURTON A CHEMICAL PROCESS ENGINEER Ot V28.81 06/07/2014 JAVIER BURTON A CHEMICAL PROCESS ENGINEER Ot V28.81 06/07/2014 LAUREL PIMENTEL MD Ot V28.81 08/24/2014 ERIC ALVARADO DO 719.41 PAIN IN JOINT INVOLVING SHOULDER REGION 08/24/2014 ERIC ALVARADO DO 723.1 CERVICALGIA 08/24/2014 THANG ESTEVES APRN 719.41 PAIN IN JOINT INVOLVING SHOULDER REGION 08/24/2014 THANG ESTEVES APRN 723.1 CERVICALGIA 09/25/2014 SHAKILA GODFREY, FRIEDA Greco Ot 786.2 COUGH 09/29/2014 BURTON HERRERA CHEMICAL PROCESS ENGINEER Ot 649.03 09/29/2014 BURTON HERRERA CHEMICAL PROCESS ENGINEER Ot V28.81 09/29/2014 BURTON HERRERA CHEMICAL PROCESS ENGINEER Ot V28.81 09/29/2014 MARGARITO GODFREY, LAUREL Buck Ot V28.81 12/04/2014 DIONI HURTADO Ot 535.50 UNSP GASTRITIS GASTRODUODENITIS W/O ME 12/04/2014 DIONI HURTADO Ot 789.06 ABDOMINAL PAIN, EPIGASTRIC 12/04/2014 BURTON HERRERA CHEMICAL PROCESS ENGINEER Ot 649.03 12/04/2014 BURTON HERRERA CHEMICAL PROCESS ENGINEER Ot V28.81 12/04/2014 BURTON HERRERA CHEMICAL PROCESS ENGINEER Ot V28.81 12/04/2014 LAUREL PIMENTEL MD Ot V28.81 12/05/2014 BURTON HERRERA CHEMICAL PROCESS ENGINEER Ot 649.03 12/05/2014 BURTON HERRREA CHEMICAL PROCESS ENGINEER Ot V28.81 12/05/2014 BURTON HERRERA CHEMICAL PROCESS ENGINEER Ot V28.81 12/05/2014 LAUREL PIMENTEL MD Ot V28.81 12/17/2015 BURTON HERRERA CHEMICAL PROCESS ENGINEER Ot 649.03 TOBACCO USE DISOR COMP PREG/CHILDBIRTH/ P 12/17/2015 BURTON HERRERA CHEMICAL PROCESS ENGINEER Ot V28.81 ENCOUNTER FOR ANATOMIC SURVEY 12/17/2015 BURTON HERRERA CHEMICAL PROCESS ENGINEER Ot V28.81 ENCOUNTER FOR ANATOMIC SURVEY 12/17/2015 LAUREL PIMENTEL MD Ot V28.81 ENCOUNTER FOR ANATOMIC SURVEY 12/17/2015 ROSA ELENA WEINER DO Ot G44.309 POST-TRAUMATIC HEADACHE, UNSPECIFIED, NO 12/17/2015 BURTON HERRERA CHEMICAL PROCESS ENGINEER Ot 649.03 TOBACCO USE DISOR COMP PREG/CHILDBIRTH/ P 12/17/2015 BURTON HERRERA CHEMICAL PROCESS ENGINEER Ot V28.81 ENCOUNTER FOR ANATOMIC SURVEY 12/17/2015 BURTON HERRERA CHEMICAL PROCESS ENGINEER Ot V28.81 ENCOUNTER FOR ANATOMIC SURVEY 12/17/2015 LAUREL PIMENTEL MD Ot V28.81 ENCOUNTER FOR ANATOMIC SURVEY 12/18/2015 ROSA ELENA WEINER DO Ot G44.309 POST-TRAUMATIC HEADACHE, UNSPECIFIED, NO 12/19/2015 ROSA ELENA WEINER DO Ot G44.309 POST-TRAUMATIC HEADACHE, UNSPECIFIED, NO 12/16/2016 JUAN GODFREY, DIONY Frey Ot D64.9 ANEMIA, UNSPECIFIED 12/16/2016 JUAN GODFREY, DIONY Frey Ot N80.0 ENDOMETRIOSIS OF UTERUS 12/16/2016 DIONY MARTINEZ MD Ot R10.2 PELVIC AND PERINEAL PAIN 12/16/2016 JUAN GODFREY, DIONY Frey Ot Z01.818 ENCOUNTER FOR OTHER PREPROCEDURAL EXAMIN 12/18/2016 BURTON HERRERA CHEMICAL PROCESS ENGINEER Ot 649.03 TOBACCO USE DISOR COMP PREG/CHILDBIRTH/ P 12/18/2016 BURTON HERRERA CHEMICAL PROCESS ENGINEER Ot V28.81 ENCOUNTER FOR ANATOMIC SURVEY 12/18/2016 BURTON HERRERA APRN Ot V28.81 ENCOUNTER FOR ANATOMIC SURVEY 12/18/2016 MARGARITO GODFREY, LAUREL Buck Ot V28.81 ENCOUNTER FOR ANATOMIC SURVEY Procedures Code Description [place] [address] IUD REMOVAL 02/22 39326 UA W/ CULTURE IF INDICATED 04/12/2013 92635 CULTURE URINE 11/2012 81863 CULTURE URINE 24666 UA W/ CULTURE IF INDICATED 06/24/2013 57348 TEST, URINE (IN-HOUSE) 07/19/2013 03569 UA LONG DIP 08/11 92773 TRICHOMONAS (IN-HOUSE) 08/11/2013 28615 GC/CHLAM PROBE ([facility]) 08/11/2013 82117 CULTURE URINE 12/2013 56945 CULTURE UROGENITAL 08/15/2013 76495 ROUTINE VENIPUNCTURE 08/18/2013 30809 UA OB DIP 2013 26121 US OB - EARLY <14 WEEKS 08/18/2013 83721 SYPHILLIS-STATE LAB 08/18/2013 62167 HIV (STATE LAB) 08/18/2013 91902 ANTIBODY SCREEN (order) 08/18/2013 79556 HEP B SURFACE ANTIGEN (STATE) 08/18/2013 76408 CBC 08/19/2013 96299 TSH 08/19/2013 [id number] ANTIBODY SCREEN (RESULT ONLY) 08/20/2013 15599 BLOOD TYPE/Rh FACTOR 08/20/2013 27054 RUBELLA ANTIBODY, IGG 08/20/2013 75781 UA OB DIP 2013 14601 CULTURE URINE 04/2014 43109 US OB - COMPLETE >14 WEEKS 10/25/2013 23130 UA W/ CULTURE IF INDICATED 11/10/2013 15195 CULTURE URINE 10/2013 74884 UA OB DIP 2013 20956 US OB - FOLLOW UP 12/13/2013 76712 ROUTINE VENIPUNCTURE 01/05/2014 22290 UA OB DIP 2013 48629 CBC 01/06/2014 71316 GLUCOSE АЛЕКСАНДР 1 HOUR 01/06/2014 97290 UA OB DIP 2013 51048 UA OB DIP 2013 18998 UA OB DIP 2013 99828 UA OB DIP 2013 54918 CULTURE GROUP B STREP VAG 02/25/2014 33911 UA OB DIP 2013 49589 UA OB DIP 2013 96.49 OTHER INSTILLATION 03/14/2014 73.6 EPISIOTOMY 2013 24944 TEST, URINE (IN-HOUSE) 05/02/2014 Results Encounters ACCT No. Visit Date/Time Discharge Status Pt. Type Provider Facility Loc./Unit Complaint [id number] 09/29/2014 13:22:00 09/29/2014 23: 59:59 CLS Outpatient THANG ESTEVES APRN [id number] 08/24/2014 10:38:00 08/24/2014 23: 59:59 CLS Outpatient ERIC ALVARADO DO [id number] 05/31/2014 14:25:00 05/31/2014 23: 59:59 CLS Outpatient MASSIEL BONDS MD [id number] 05/02/2014 09:55:00 05/02/2014 23: 59:59 CLS Outpatient BURTON HERRERA APRN [id number] 03/09/2014 15:07:00 03/09/2014 23: 59:59 CLS Outpatient ERIC ALVARADO DO Angus [id number] 03/02/2014 15:38:00 03/02/2014 23: 59:59 CLS Outpatient LAUREL PIMENTEL MD [id number] 02/23/2014 15:05:00 02/23/2014 23: 59:59 CLS Outpatient LAUREL PIMENTEL MD [id number] 02/16/2014 13:51:00 02/16/2014 23: 59:59 CLS Outpatient LAUREL PIMENTEL MD [id number] 02/02/2014 13:58:00 02/02/2014 23: 59:59 CLS Outpatient LAUREL PIMENTEL MD [id number] 01/05/2014 14:44:00 01/05/2014 23: 59:59 CLS Outpatient LAUREL PIMENTEL MD [id number] 12/08/2013 14:14:00 12/08/2013 23: 59:59 CLS Outpatient LAUREL PIMENTEL MD [id number] 11/10/2013 14:06:00 11/10/2013 23: 59:59 CLS Outpatient JENNY VELASQUEZERIC [id number] 11/04/2013 09:53:00 11/04/2013 23: 59:59 CLS Outpatient JENNY VELASQUEZERIC [id number] 10/13/2013 14:31:00 10/13/2013 23: 59:59 CLS Outpatient ERIC ALVARADO DO Angus [id number] 09/15/2013 16:45:00 09/15/2013 23: 59:59 CLS Outpatient MONICA HERRERA APRNDELFINO Lang [id number] 08/18/2013 16:23:00 08/18/2013 23: 59:59 CLS Outpatient MONICA HERRERA APRNDELFINO Lang [id number] 08/11/2013 17:12:00 08/11/2013 23: 59:59 CLS Outpatient MONICA HERRERA APRNDELFINO Lang [id number] 07/19/2013 10:28:00 07/19/2013 23: 59:59 CLS Outpatient ERIC ALVARADO DO [id number] 06/24/2013 13:42:00 06/24/2013 23: 59:59 [facility] Outpatient BURTON HERRERA APRN [id number] 04/12/2013 17:45:00 04/12/2013 23: 59:59 [facility] Outpatient BURTON HERRERA APRN [id number] 01/19/2014 13:51:00 Document Registration [id number] 02/22/2013 14:45:00 Document Registration
[2016-12-20] MEDS ORDERED: ceFAZolin 1,000 MG (ANCEF) VIAL ONE (11:39)
[2016-12-20] MEDS ORDERED: NS (IVPB) 50 ML ONE (11:39)
[2016-12-20] MEDS ORDERED: CATHETER FLUSH 10 ML SYR IV PRN (11:45)
[2016-12-20] MEDS ORDERED: ceFAZolin 1 GM/NS 50 ML IVPB IV ONE ×2 (11:45)
[2016-12-20 11:55] LABS: BASOPHILS # (AUTO) 0.1 10^3/uL (0.0-0.1); BASOPHILS % (AUTO) 1 % (0-10); EOSINOPHILS # (AUTO) 0.1 10^3/uL (0.0-0.3); EOSINOPHILS % (AUTO) 1 % (0-10); LYMPHOCYTES % (AUTO) 39 % (12-44); MEAN CORPUSCULAR HEMOGLOBIN 25 PG (25-34); MEAN CORPUSCULAR HGB CONC 31 G/DL (32-36); MEAN CORPUSCULAR VOLUME 81 FL (80-99); MONOCYTES # (AUTO) 0.6 X 10^3 (0.0-1.0); MONOCYTES % (AUTO) 7 % (0-12); NEUTROPHILS # (AUTO) 4.1 X 10^3 (1.8-7.8); NEUTROPHILS % (AUTO) 53 % (42-75); PLATELET COUNT 250 10^3/uL (130-400); RED BLOOD COUNT 4.66 10^6/uL (4.35-5.85); RED CELL DISTRIBUTION WIDTH 15.7 % (10.0-14.5); WHITE BLOOD COUNT 7.7 10^3/uL (4.3-11.0)
[2016-12-20] MEDS ORDERED: fentaNYL INJECTION 100 MCG/2 ML AMP ONE (12:21)
[2016-12-20] MEDS ORDERED: proPOfol 200 MG/20 ML (DIPRIVAN) VIAL IV ONE (12:21)
[2016-12-20] MEDS ORDERED: MIDAZOLAM 2 MG/2 ML (VERSED) VIAL ONE (12:21)
[2016-12-20] MEDS ORDERED: LIDOCAINE PF 2% 5 ML (XYLOCAINE) VIAL ONE (12:22)
[2016-12-20] MEDS ORDERED: ONDANSETRON 4 MG/2 ML (SDV) Z0FRAN ONE (12:22)
[2016-12-20] MEDS ORDERED: ROCURONIUM 50 MG/5 ML (ZEMURON) VIAL IV ONE (12:22)
[2016-12-20] MEDS ORDERED: DEXAMETHASONE PF 10 MG/ML (DECADRON) VIAL ONE (12:22)
[2016-12-20] MEDS ORDERED: FAMOTIDINE 20MG/2ML IV (PEPCID) IV ONE (12:30)
[2016-12-20] MEDS ORDERED: BUP/EPI 0.25% 1:200,000 (MARCAINE) 10 ML VIAL IJ ONE (12:39)
[2016-12-20] MEDS ORDERED: SEVOFLURANE (ULTANE) 15 ML INHAL SOLN ONE ×7 (12:53→14:37)
[2016-12-20] MEDS ORDERED: LACTATED RINGERS 1,000 ML IV ONE (12:53)
[2016-12-20] MEDS ORDERED: LEVOFLOXACIN 250 MG/50 ML IVPB 50 ML ONE (12:57)
--- NOTE | 2016-12-20 13:03 | Progress Note-Pre Operative ---
Pre-Operative Progress Note H&P Reviewed The H&P was reviewed, patient examined and no changes noted. Date Seen by Provider: Dec 20, 2016 Time Seen by Provider: 13:02 Date H&P Reviewed: Dec 20, 2016 Time H&P Reviewed: 13:02 Pre-Operative Diagnosis: chronic pelvic pain, history of endometriosis, uuterine prolapse, dysmenorr DIONY MARTINEZ MD Dec 20, 2016 1:03 pm
--- NOTE | 2016-12-20 13:04 | Progress Note-Post Operative ---
Post-Operative Progess Note Surgeon (s)/Family Day Care Worker (s) Surgeon DIONY MARTINEZ MD Family Day Care Worker: Teresa Eddy are in Pre-Operative Diagnosis chronic pelvic pain, history of endometriosis, uuterine prolapse, dysmenorr Post-Operative Diagnosis same with pelvic adhesions and pathology pending Procedure & Operative Findings Date of Procedure 12/20/16 Procedure Performed/Findings total laparoscopic hysterectomy with bilateral salpingo-oophorectomy and adhesiolysis and destruction of endometriosis Anesthesia Type Gen. endotracheal Estimated Blood Loss Estimated blood loss (mL): minimal Specimens/Packing Specimens Removed uterus tubes and ovaries Packing: none DIONY MARTINEZ MD Dec 20, 2016 13:04
[2016-12-20] MEDS: LACTATED RINGERS 1,000 ML IV PRN ×2 (13:06→14:20)
[2016-12-20 13:13] VITALS: BP 109/79
[2016-12-20] MEDS ORDERED: LEVOFLOXACIN 250 MG/50 ML IVPB 50 ML IV ONE ×2 (13:15)
[2016-12-20] MEDS ORDERED: OMEP20CA12 PO (13:15)
[2016-12-20] MEDS ORDERED: OXYC-197 PO (13:15)
[2016-12-20] MEDS ORDERED: PATIENT MAY USE OWN MEDS, ALL MC SCH (13:15)
[2016-12-20] MEDS ORDERED: MEPERIDINE (DEMEROL) INJ 100 MG/ML IM PRN (13:15)
[2016-12-20] MEDS ORDERED: GENTAMICIN INJ (FOR COMPOUND) 120 MG in NS (IVPB) 100 ML IV ONE ×4 (13:15)
[2016-12-20] MEDS ORDERED: ESTROGENS CONJ IV 25 MG/5 ML (PREMARIN) VIAL IVP ONE (13:15)
[2016-12-20] MEDS ORDERED: BENZOCAINE/MENTHOL (DERMOPLAST) 56 ML CAN TP PRN (13:15)
[2016-12-20] MEDS ORDERED: PROMETHAZINE INJ 25 MG/ML (PHENERGAN) AMP IM PRN (13:15)
[2016-12-20] MEDS ORDERED: WATER (STERILE) FOR INJ 10 ML BTL INJ ONE (13:15)
[2016-12-20] MEDS ORDERED: ONDANSETRON 4 MG/2 ML (SDV) Z0FRAN IVP PRN ×2 (13:15→14:45)
[2016-12-20] MEDS ORDERED: HYDROmorphone (DILAUDID) 2 MG/ML VIAL ONE (14:32)
[2016-12-20] MEDS ORDERED: morphine INJ 10 MG/ML 1ML (SYR OR VIAL) ONE (14:32)
[2016-12-20] MEDS ORDERED: GLYCOPYRROLATE 0.2 MG/ML (ROBINUL) 2 ML VIAL ONE (14:37)
[2016-12-20] MEDS ORDERED: NEOSTIGMINE (BLOXIVERZ ) 1 MG/1ML 10 ML VIAL ONE (14:37)
[2016-12-20] MEDS ORDERED: MEPERIDINE (DEMEROL) INJ 50 MG/ML IVP PRN (14:45)
[2016-12-20] MEDS ORDERED: HYDROmorphone (DILAUDID) 2 MG/ML VIAL IVP PRN (14:45)
[2016-12-20] MEDS ORDERED: PROMETHAZINE INJ 25 MG/ML (PHENERGAN) AMP IVP PRN (14:45)
[2016-12-20] MEDS: KETOROLAC 30 MG/ML VIAL IVP SCH ×2 (14:47→19:56)
[2016-12-20] MEDS: morphine INJ 10 MG/ML 1ML (SYR OR VIAL) IVP PRN ×2 (14:57→15:01)
[2016-12-20 15:55] VITALS: BP 101/72
[2016-12-20] MEDS: D5 LR IV SOLUTION 1,000 ML IV SCH (17:10)
[2016-12-20] MEDS: oxyCODONE/APAP 10/325MG (PERCOCET 10) TABLET PO PRN ×3 (17:47→21:19)
[2016-12-20 20:00] VITALS: BP 98/65
[2016-12-20] MEDS ORDERED: DOCUSATE SODIUM 100 MG (COLACE) CAP PO ONE (21:16)
[2016-12-20] MEDS: DOCUSATE SODIUM 100 MG (COLACE) CAP PO SCH (21:21)
[2016-12-21 00:15] VITALS: BP 112/66
[2016-12-21] MEDS: KETOROLAC 30 MG/ML VIAL IVP SCH ×2 (02:17→08:08)
[2016-12-21] MEDS: D5 LR IV SOLUTION 1,000 ML IV SCH (02:17)
[2016-12-21] MEDS: oxyCODONE/APAP 10/325MG (PERCOCET 10) TABLET PO PRN ×2 (02:17→06:21)
[2016-12-21 04:45] VITALS: BP 83/52
[2016-12-21] MEDS ORDERED: ESTRADIOL 1 MG TAB (ESTRACE) PO SCH (09:00)
--- NOTE | 2016-12-21 09:23 | Progress Note-Standard ---
Standard Progress Note Progress Notes/Assess & Plan Date Seen by Provider: Dec 21, 2016 Time Seen by Provider: 09:22 Progress/Assessment & Plan this patient is without complaint. She is ambulating, voiding, tolerating fairly well, has good pain control. Patient denies chest pain, denies shortness breath, denies nausea vomiting, denies headache, she does have some itching with the Percocet. Vital Signs Date Time Temp Pulse Resp B/P (MAP) Pulse Ox O2 Delivery O2 Flow Rate FiO2 12/21/16 04:45 97.2 53 18 83/52 99 Room Air 12/21/16 00:15 98.9 85 19 112/66 98 Room Air 12/20/16 20:00 97.9 73 18 98/65 98 Room Air 12/20/16 15:55 97.0 68 20 101/72 99 Room Air 12/20/16 13:13 97.3 46 16 109/79 98 I & O 12/21/16 07:00 Intake Total 3113 ml Output Total 3200 ml Balance -87 ml vital signs are stable. Patient is afebrile. The abdomen is benign. Extreme show no clubbing cyanosis. There is no Homans sign. Assessment and plan postoperative day number 1 doing well. Patient has some itching due to her narcotic for pain control. We'll prescribed Benadryl for that plan otherwise is for discharge home with follow-up in clinic Final Diagnosis chronic pelvic pain/menorrhagia/DD/endometriosis DIONY MARTINEZ MD Dec 21, 2016 9:23 am
[2016-12-21] MEDS ORDERED: IBUPROFEN 800 MG (MOTRIN) TAB PO ONE (09:24)
[2016-12-21] MEDS ORDERED: NORG1TAB14 PO (09:26)
[2016-12-21] MEDS ORDERED: DOCU100C37 PO (09:26)
[2016-12-21] MEDS ORDERED: IBUP-1780 PO (09:26)
[2016-12-21] MEDS ORDERED: OXYC-465 PO (09:26)
[2016-12-21] MEDS ORDERED: DIPH25TA27 PO (09:26)
--- NOTE | 2016-12-21 09:28 | Discharge Instructions ---
Discharge Instructions Discharge Medications New, Converted or Re-Newed RX: RX on Chart Patient Instructions Patient Instructions: as directed Return to The Hospital For: as directed Activity & Diet Discharge Diet: No Restrictions Activity as Tolerated: No Orders-Post D/C & Referrals Follow Up Appt: return to clinic on Friday, December 25, 2016 at 930 a.m. for staple removal Call to make follow up appt. for patient in 4 weeks. Activity: Rest for 24 hours, than as tolerated. Wound Care: May remove Band-Aid tomorrow. Replace as desired. Keep incisions clean and dry. Wash daily with soap and water. Please call in RX to patient pharmacy. Diet: As tolerated-Clear Liquids only if nauseated. May shower or tub bathe as desired. No driving for 24 hours, no alcoholic beverages for 24 hours, and nothing per vagina (no tampons, douching, or penetrational intercoarse) for 8 weeks. Patient to return to the clinic as soon as possible for: Temperature greater than 101F, Severe Pain, Foul discharge from incision or vagina, Excessive Bleeding (more than a period). DIONY MARTINEZ MD Dec 21, 2016 9:28 am
[2016-12-21] MEDS ORDERED: diphenhydrAMINE 25 MG TAB (BENADRYL) PO PRN (09:30)
[2016-12-21] MEDS: DOCUSATE SODIUM 100 MG (COLACE) CAP PO SCH (09:31)
[2016-12-21 09:33] VITALS: BP 104/69
[2016-12-21] MEDS ORDERED: IBUPROFEN 800 MG (MOTRIN) TAB PO SCH (18:00)
--- NOTE | 2016-12-23 10:12 | OPERATIVE REPORT ---
PROCEDURE PHYSICIAN: IDONY MARTINEZ DATE OF PROCEDURE: 12/20/2016 PREOPERATIVE DIAGNOSES: 1. Chronic pelvic pain. 2. Endometriosis likely adenomyosis. 3. Menorrhagia. 4. Uterine prolapse. POSTOPERATIVE DIAGNOSES: 1. Chronic pelvic pain. 2. Endometriosis likely adenomyosis. 3. Menorrhagia. 4. Uterine prolapse. 5. Endometriosis. 6. Extensive adenomyosis. 7. Pelvic adhesions. OPERATIVE PROCEDURE: Total laparoscopic hysterectomy with bilateral salpingo-oophorectomy as well as adhesiolysis. OPERATIVE DESCRIPTION: With the patient in the supine position, under satisfactory general anesthesia, the patient was prepped and draped usual fashion for abdominal and vaginal surgery. The urinary bladder was drained via Walton catheter to dependent drainage. A weighted speculum was placed in the posterior fornix of the vagina. Cervix exposed and grasped anteriorly with single-tooth tenaculum. The uterus sounded to 11 cm of uterine sound. The cervix was then serially dilated with Beck dilators to accommodate a DANIELITO 2 manipulator, which was placed in the usual manner and affixed the cervix with 2 sutures of number 1 Vicryl at the 9 and 12 o'clock positions of the cervix. The instrument used a 6 mm x 8 cm uterine probe and a 35 mm colpotomy ring. The patient was now brought in a low dorsal lithotomy position and attention was turned to the abdomen. A 12 mm incision was made 5 cm superior to the umbilicus. 8 mm incisions were made 9 cm lateral to the umbilicus. All incision sites were infiltrated with 0.25% Marcaine with epinephrine prior to incisions. A Veress needle was placed through the superior midline incision and correct placement confirmed with the water drop test. The abdomen was insufflated with 2.4 liters of carbon dioxide and the Veress needle was removed and a 12 mm Optiview laparoscopic port placed. The right and left lateral side ramsey were transilluminated and 8 mm ports were placed under direct vision. The patient was placed in Trendelenburg, allowing the bowel was spilled up out of pelvis. The operative surgical assistant certified equipment was docked and then operative instruments were placed. Using the vessel sealer on the right and bipolar fenestrated grasper on the left, the pelvis was first examined. 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 There was evidence of tubal sterilization bilaterally. There was endometriosis implants in both ovarian fossae and in the cul-de-sac. The uterus was extensively mottled and patchy and dusky looking consistent with extensive adenomyosis. Both ureters were seen clearly freely peristalsing well out of the way of the intended surgery. The laparoscope was rotated. The appendix was well up on the right side it was not down in the lower colonic gutter on the right and it was covered with bowel and omentum. It was too far remote from the pelvis for evaluation and so it was left alone. Using the vessel sealer, the right tube and ovary were grasped and elevated. The IP ligament was clamped, cauterized, and divided. Using the vessel sealer in a stepwise fashion across the mesovarian, across the round ligament, across the broad ligament and eventually down on the cardinal ligament allowing for removal of the tube and ovary on the right with removal of the uterus eventually. The same procedure performed on the left with the same result. The anterior lower uterine segment peritoneum was now divided with monopolar shannon in place of the vessel sealer. The bladder was dissected clear down off of the cervix and exposing the vaginal wall over the colpotomy ring. The vaginal wall was incised at the 12 o'clock position and that incision was continued circumferentially exposing the entire colpotomy ring through the colpotomy incision. The uterus, tubes and ovaries were then extracted through the vagina. The vaginal cuff was closed with 2 sutures of V-LOC barbed suture using Everett cut needle corrugated fastener driver on the right and a Cobra grasper on the left. The closure was started at the angle of the vagina and care was taken to include the terminus of the pedicles of the uterine arteries and cardinal ligaments on their respective sides for insured hemostasis. The bladder peritoneum was brought back down onto the vaginal cuff with the last several stitches from the suture on the left. Hemostasis was complete. The pelvis was irrigated. With hemostasis assured, the monopolar shear was used to destroy the endometriosis implants in both ovarian fossae on the right uterosacral ligaments and in the cul-de-sac. With all the endometriosis destroyed, with no abnormal pathology and both ureters peristalsing freely, the procedure was terminated. The instruments were removed as were the ports. The abdomen was evacuated of its insufflating and the process of removing the ports. The patient brought out of Trendelenburg. The skin incisions were closed with veronika. the fascia at the supraumbilical incision closed with [id number] suture of 2-0 Vicryl. The speculum was replaced in the vagina examining the vaginal cuff which was completely closed and completely hemostatic. Sponge and needle counts were correct. Estimated blood loss was minimal, certainly less than 50 mL. The patient tolerated the procedure well and was uneventfully awakened from her general anesthesia and transferred to recovery room in stable condition. 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
== END 2016-12-21 11:00 | disposition home or self-care (01) ==
LOC: SDC 11:12 → WS 15:51 → SDC 12-21 11:00
PROVIDERS: ATTEND Obstetrics & Gynecology
DX: N80.1 Endometriosis of ovary (principal); N80.3 Endometriosis of pelvic peritoneum; N92.0 Excessive and frequent menstruation with regular cycle; N81.4 Uterovaginal prolapse, unspecified; N73.6 Female pelvic peritoneal adhesions (postinfective); R10.2 Pelvic and perineal pain; N83.8 Other noninflammatory disorders of ovary, fallopian tube and broad ligament; N83.201 Unspecified ovarian cyst, right side; N83.202 Unspecified ovarian cyst, left side
CPT/HCPCS: 36415; 84703; 85025; 86850; 86900; 86901; 87081; 94664; 96361; 96372; 96374; 96375; 96376

== ENCOUNTER → 2018-06-18 | Outpatient (CLI) | payer BC ==
[~2018-06-18] MED LIST changes: +DIPH25TA27 PO; +DOCU100C37 PO; +IBUP-1780 PO; +NORG1TAB14 PO; +OMEP20CA12 PO; +OXYC-465 PO; +OXYC1TAB87 PO
--- NOTE | 2018-06-18 09:06 | Diagnostic Imaging Report ---
PROCEDURE: CT sinuses without contrast TECHNIQUE: Multiple contiguous axial images were obtained through the sinuses without the use of intravenous contrast. Coronal and sagittal reformations were then performed. INDICATION: Chronic sinusitis. COMPARISON: No prior studies are available for comparison. FINDINGS: The frontal sinus is well aerated. The ethmoid air cells and the sphenoid sinus are clear. Bilateral maxillary sinuses are clear. No mucosal thickening or air-fluid levels are detected. The ostiomeatal complexes are widely patent. There is very slight nasal septal deviation to the left. Mastoid air cells are well aerated. IMPRESSION: No evidence of sinusitis. Dictated by: Dictated on workstation # [id number]
== END ==
LOC: RAD 08:36
PROVIDERS: ATTEND Otolaryngology Otolaryngology/Facial Plastic Surgery
DX: J32.9 Chronic sinusitis, unspecified (principal)
CPT/HCPCS: 70486

== ENCOUNTER 2021-03-08 14:36 | Emergency (ER) | payer BC ==
[~2021-03-08] VITALS: Ht 175.2 cm; Wt 118.0 kg
[~2021-03-08 14:36] MED LIST changes: -NORG1TAB7 PO; +NORG1TAB87 PO; -OMEP20CA12 PO; +OMEP20CA18 PO; -OXYC-465 PO; +OXYC-556 PO
[2021-03-08] MEDS ORDERED: NS IV 1000 ML 1,000 ML IV STA (15:09)
[2021-03-08] MEDS ORDERED: ASPIRIN 81 MG CHEW (CHILDREN'S ASA) PO ONE (15:15)
--- NOTE | 2021-03-08 15:18 | ED Chest Pain ---
General Chief Complaint: Chest Pain Stated Complaint: CP, L SHOULDER PAIN X 3 DAYS Source: patient Exam Limitations: no limitations History of Present Illness Date Seen by Provider: Mar 08, 2021 Time Seen by Provider: 14:58 Initial Comments Here with report of left-sided anterior chest pain that radiates to the left arm. This has been going on for the last 3 days. Reports some lightheadedness and near syncope. Also reports some shortness of air. She did suffer from Covid infection in December and had vaccination in January and early February. Denies ever having anything like this before. Sent here from her primary care office after call apparently. Denies nausea, vomiting, diarrhea or weakness otherwise. Timing/Duration: getting worse, 3-4 days Severity/Quality: mild, moderate, aching Location: central Radiation: arms (Left) Activities at Onset: none Prior CP/Workup: no prior chest pain, no prior cardiac workup Modifying Factors: improves with rest ASA po COUNTERINTELLIGENCE/HUMINT SPECIALIST: No NTG SL COUNTERINTELLIGENCE/HUMINT SPECIALIST: No Associated Symptoms: No abdominal pain, No back pain, No dizziness, No fever/chills, No nausea/vomiting; shortness of breath; No weakness Allergies and Home Medications Allergies Coded Allergies: Cephalexin Monohydrate (Unverified Adverse Reaction, Intermediate, 03/01/12) amoxicillin (Unverified Adverse Reaction, Intermediate, rash, 03/01/12) Sulfa (Sulfonamide Antibiotics) (Unverified Adverse Reaction, Mild, 03/01/12) azithromycin (Unverified Adverse Reaction, Mild, 03/01/12) pertussis vaccine,adsorbed (Unverified Adverse Reaction, Mild, 03/01/12) ranitidine (Unverified Adverse Reaction, Mild, 03/01/12) Patient Home Medication List Home Medication List Reviewed: Yes Cetirizine HCl (Cetirizine HCl) 10 Mg Tablet, 10 MG PO DAILY, (Reported) Entered as Reported by: PEDRO MAX on 12/17/15 1227 Diphenhydramine HCl (Banophen) 25 Mg Tablet, 25 MG PO Q6H PRN for itch Prescribed by: DIONY ROBLERO on 12/21/16 09 Docusate Sodium (Docusate Sodium) 100 Mg Capsule, 100 MG PO BID Prescribed by: DIONY ROBLERO on 12/21/16 09 Ibuprofen (Ibuprofen) 800 Mg Tablet, 800 MG PO Q6HR Prescribed by: DIONY ROBLERO on 12/21/16925 Norgestimate-Ethinyl Estradiol (Sprintec 28 Day Tablet) 1 Each Tablet, 1 EACH PO DAILY Prescribed by: DIONY ROBLERO on 12/21/16925 Omeprazole (Omeprazole) 20 Mg Capsule.dr, 20 MG PO DAILY, (Reported) Entered as Reported by: RUSLAN LORA on 12/20/16 1315 Oxycodone HCl/Acetaminophen (Oxycodone-Acetaminophen 10-325) 1 Each Tablet, 1-2 TAB PO Q4HR PRN for PAIN-MODERATE Prescribed by: DIONY ROBLERO on 12/21/16925 Review of Systems Review of Systems Constitutional: see HPI; No chills, No fever EENTM: No Symptoms Reported Respiratory: See HPI Cardiovascular: See HPI Gastrointestinal: See HPI Genitourinary: No Symptoms Reported Musculoskeletal: joint pain, muscle pain Skin: no symptoms reported All Other Systems Reviewed Negative Unless Noted: Yes Past Cjcfwln-Dlfepl-Vpzfap Hx Patient Social History Tobacco Use?: No Substance use?: No Alcohol Use?: No Immunizations Up To Date Tetanus Booster (TDap): Less than 5yrs PED Vaccines UTD: No Seasonal Allergies Seasonal Allergies: Yes Past Medical History Surgeries: Yes Hysterectomy, Tubal Ligation Respiratory: No Cardiac: No Neurological: No Vertigo Reproductive Disorders: Yes Female Reproductive Disorders: Denies 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 0.0oz. 86.112433lg; 28.1 BMI Method:Stated General Appearance: No Apparent Distress, WD/WN HEENT: PERRL/EOMI, Pharynx Normal Neck: Full Range of Motion, Normal Inspection, Non Tender, Supple Respiratory: Lungs Clear, Normal Breath Sounds Cardiovascular: Regular Rate, Rhythm, No Murmur Gastrointestinal: Non Tender, Soft Extremity: Normal Capillary Refill, Normal Inspection, Normal Range of Motion, Non Tender, No Calf Tenderness Neurologic/Psychiatric: Alert, Oriented x3 Skin: Normal Color, Warm/Dry Progress/Results/Core Measures Results/Orders Lab Results Laboratory Tests Test 03/08/21 14:59 Range/Units White Blood Count 10.1 4.3-11.0 10^3/uL Red Blood Count 4.58 3.80-5.11 10^6/uL Hemoglobin 12.7 11.5-16.0 g/dL Hematocrit 39 35-52 % Mean Corpuscular Volume 86 80-99 fL Mean Corpuscular Hemoglobin 28 25-34 pg Mean Corpuscular Hemoglobin Concent 32 32-36 g/dL Red Cell Distribution Width 13.7 10.0-14.5 % Platelet Count 311 130-400 10^3/uL Mean Platelet Volume 11.6 9.0-12.2 fL Immature Granulocyte % (Auto) 0 % Neutrophils (%) (Auto) 63 42-75 % Lymphocytes (%) (Auto) 29 12-44 % Monocytes (%) (Auto) 6 0-12 % Eosinophils (%) (Auto) 1 0-10 % Basophils (%) (Auto) 1 0-10 % Neutrophils # (Auto) 6.4 1.8-7.8 X 10^3 Lymphocytes # (Auto) 2.9 1.0-4.0 X 10^3 Monocytes # (Auto) 0.6 0.0-1.0 X 10^3 Eosinophils # (Auto) 0.1 0.0-0.3 10^3/uL Basophils # (Auto) 0.1 0.0-0.1 10^3/uL Immature Granulocyte # (Auto) 0.0 0.0-0.1 10^3/uL Prothrombin Time 12.2 12.2-14.7 SEC INR Comment 0.9 0.8-1.4 Activated Partial Thromboplast Time 27 24-35 SEC D-Dimer 0.79 H 0.00-0.49 UG/ML Sodium Level 137 135-145 MMOL/L Potassium Level 3.8 3.6-5.0 MMOL/L Chloride Level 104 98-107 MMOL/L Carbon Dioxide Level 23 21-32 MMOL/L Anion Gap 10 5-14 MMOL/L Blood Urea Nitrogen 10 7-18 MG/DL Creatinine 0.66 0.60-1.30 MG/DL Estimat Glomerular Filtration Rate 107 BUN/Creatinine Ratio 15 Glucose Level 113 H 70-105 MG/DL Calcium Level 9.1 8.5-10.1 MG/DL Corrected Calcium 9.3 8.5-10.1 MG/DL Magnesium Level 2.0 1.6-2.4 MG/DL Total Bilirubin 0.2 0.1-1.0 MG/DL Aspartate Amino Transf (AST/SGOT) 13 5-34 U/L Alanine Aminotransferase (ALT/SGPT) 16 0-55 U/L Alkaline Phosphatase 73 40-136 U/L Myoglobin 19.8 10.0-92.0 NG/ML Total Protein 7.2 6.4-8.2 GM/DL Albumin 3.7 3.2-4.5 GM/DL My Orders Orders - MELBA WHITE MD Cbc With Automated Diff (03/08/21 15:09) Magnesium (03/08/21 15:09) Chest 1 View, Ap/Pa Only (03/08/21 15:09) Ekg Tracing (03/08/21 15:09) Comprehensive Metabolic Panel (03/08/21 15:09) Myoglobin Serum (03/08/21 15:09) Protime With Inr (03/08/21 15:09) Partial Thromboplastin Time (03/08/21 15:09) Monitor-Rhythm Ecg Trace Only (03/08/21 15:09) Lipid Panel (03/09/21 06:00) Ed Iv/Invasive Line Start (03/08/21 15:09) Troponin I (03/08/21 15:09) Aspirin Chewable Tablet (Baby Aspirin Ch (03/08/21 15:15) Ns Iv 1000 Ml (Sodium Chloride 0.9%) (03/08/21 15:09) Fibrin Degradation Products (03/08/21 14:59) Ct Angio Chest W (03/08/21 16:54) Ketorolac Injection (Toradol Injection) (03/08/21 17:00) Iohexol Injection (Omnipaque 350 Mg/Ml 1 (03/08/21 17:15) Received Contrast (Hold Metformin- Contr (03/08/21 17:15) Sodium Chloride Flush (Catheter Flush Sy (03/08/21 17:15) Ns (Ivpb) (Sodium Chloride 0.9% Ivpb Bag (03/08/21 17:15) Orphenadrine Inj (Ed Only) (Norflex Inje (03/08/21 17:44) Medications Given in ED Current Medications Medications Dose Ordered Sig/Fallon Route Start Time Stop Time Status Last Admin Dose Admin Aspirin 324 mg ONCE ONCE PO 03/08/21 15:15 03/08/21 15:16 DC 03/08/21 15:18 324 MG Iohexol 100 ml ONCE ONCE IV 03/08/21 17:15 03/08/21 17:16 DC 03/08/21 17:16 85 ML Sodium Chloride 10 ml NEEDED PRN IV 03/08/21 17:15 03/08/21 17:16 10 ML Sodium Chloride 100 ml ONCE ONCE IV 03/08/21 17:15 03/08/21 17:16 DC 03/08/21 17:16 80 ML Vital Signs/I&O 03/08/21 15:43 Temp 36.7 Pulse 89 Resp 18 B/P (MAP) 122/83 (96) Pulse Ox 98 O2 Delivery Room Air Progress Progress Note : Progress Note Seen and evaluated. IV, labs, EKG and chest x-ray ordered. ASA 324 mg p.o. ordered. Normal saline 1 L bolus. We will check for both cardiac and lung related causes of pain. Monitor patient. 1655: D-dimer is elevated. Given her history, we will order CT angiogram of the chest to rule out pulmonary embolism. This was discussed with the patient who agrees. Monitor patient. 1745: CT angiogram is negative. Pain is actually better after 30 mg of Toradol with respect to the shoulder. She still has a little bit of chest tightness. Also has mild headache. We will give Norflex 60 mg IV. This may be related to cost ochondritis and/or a little bit of pleurisy after Covid. We will go ahead and initiate short course of steroids and she will continue ibuprofen and Tylenol at home. All of this was discussed with the patient and her significant other. Discharged home with return precautions. Patient and family verbalized understanding of instructions and agreement with plan. Initial ECG Impression Date: Mar 08, 2021 Initial ECG Impression Time: 14:58 Initial ECG Rate: 83 Initial ECG Rhythm: Normal Sinus Initial ECG Impression: Normal Initial ECG Comparisson: No Previous ECG Available Comment Sinus rhythm with normal axis. No evidence of ST elevation RI. No previous available for comparison. Interpreted by me. Diagnostic Imaging Diagonstic Imaging: CT Plain Films/CT/US/NM/MRI: chest Comments [facility], [place] NAME: MILADIS RATLIFF [facility] REC#: [id number] PT STATUS: REG ER : 1995 PHYSICIAN: MELBA WHITE MD ADMIT DATE: 03/08/21/ER Signed Date of Exam:03/08/21 CHEST 1 VIEW, AP/PA ONLY INDICATION: Chest pain. EXAMINATION: Chest, 03/08/2021. FINDINGS: Single view chest. The cardiomediastinal silhouette is unremarkable. The pulmonary vasculature is within normal limits. The lungs and pleural spaces are clear. IMPRESSION: No evidence of an acute cardiopulmonary process. Dictated by: Dictated on workstation # [id number] Dict: 03/08/21 1554 Trans: 03/08/21 1645 [id number] Interpreted by: PERRY DODGE MD Electronically signed by: PERRY DODGE MD 03/08/21 1645 Diagonstic Imaging: CT Plain Films/CT/US/NM/MRI: chest Comments [facility], [place] NAME: MILADIS RATLIFF [facility] REC#: [id number] PT STATUS: REG ER : 1995 PHYSICIAN: MELBA WHITE MD ADMIT DATE: 03/08/21/ER Draft Date of Exam:03/08/21 CT ANGIO CHEST W EXAMINATION: CT angiography of the chest. TECHNIQUE: Contrast enhanced thin section helical images were obtained through the chest with intravenous contrast timed for the optimal opacification of the arterial structures per CTA protocol. Post-processing, reconstructions and interpretation of angiographic images of the vessels was performed. 3D MIP reconstructions were performed and reviewed. All CT scans use one or more of the following dose optimizing techniques: automated exposure control, MA and/or KvP adjustment based on a patient size and exam type, or iterative reconstruction. HISTORY: Chest pain and arm pain COMPARISON: 03/21/2014 FINDINGS: There is no pulmonary embolism. There is no edema or pneumonia. No pleural effusion. No pneumothorax. No suspicious nodules. There is no axillary or supraclavicular lymphadenopathy. There is no mediastinal lymphadenopathy. Heart size is normal. There are no coronary artery calcifications. No pericardial effusion. Aorta is normal in caliber. Limited views of the upper abdomen are unremarkable. There are no suspicious osseus lesions. IMPRESSION: 1. No pulmonary embolism, clear lungs Dictated on workstation # [id number] Dict: 03/08/21 1723 Trans: 03/08/21 1726 [facility] [id number] Interpreted by: MARIA ELENA MOROCHO MD Electronically signed by: Departure Impression Primary Impression: Chest wall pain Additional Impression: Left shoulder pain Qualified Codes: M25.512 - Pain in left shoulder Disposition: 01 HOME, SELF-CARE Condition: Improved Departure-Patient Inst. Decision time for Depature: 17:46 Referrals: [facility] [place] Primary Care Physician CARLOS BARCENAS (Family) Primary Care Physician Patient Instructions: Chest Pain (DC), Costochondritis (DC), Shoulder Pain (DC) Add. Discharge Instructions: All discharge instructions reviewed with patient and/or family. Voiced understanding. You may take ibuprofen 600 mg every 8 hours as needed for pain. You may also take Tylenol/acetaminophen 1000 mg every 8 hours as needed for pain. Take other medications as directed. Follow-up with your doctor in a few days for recheck. Return for worse pain, fever, vomiting, weakness, breathing problems or other concerns as needed. Scripts Prednisone (Prednisone) 20 Mg Tab 40 MG PO DAILY, #10 TAB 0 Refills Prov: MELBA WHITE MD 03/08/21 Copy Copies To 1: TOBY SAGE MD, TIMOTHY D MD Mar 08, 2021 15:18
[2021-03-08 15:24] LABS: ALBUMIN 3.7 GM/DL (3.2-4.5); POTASSIUM 3.8 MMOL/L (3.6-5.0)
[2021-03-08 15:25] LABS: CALCIUM 9.1 MG/DL (8.5-10.1); FIBRIN DEGRADATION PRODUCTS 0.79 UG/ML (0.00-0.49); INR 0.9 (0.8-1.4); PROTHROMBIN TIME PATIENT 12.2 SEC (12.2-14.7)
[2021-03-08 15:27] LABS: BASOPHILS # (AUTO) 0.1 10^3/uL (0.0-0.1); BASOPHILS % (AUTO) 1 % (0-10); EOSINOPHILS # (AUTO) 0.1 10^3/uL (0.0-0.3); EOSINOPHILS % (AUTO) 1 % (0-10); HEMATOCRIT 39 % (35-52); HEMOGLOBIN 12.7 g/dL (11.5-16.0); LYMPHOCYTES # (AUTO) 2.9 X 10^3 (1.0-4.0); LYMPHOCYTES % (AUTO) 29 % (12-44); MEAN CORPUSCULAR HEMOGLOBIN 28 pg (25-34); MEAN CORPUSCULAR HGB CONC 32 g/dL (32-36); MEAN CORPUSCULAR VOLUME 86 fL (80-99); MEAN PLATELET VOLUME 11.6 fL (9.0-12.2); MONOCYTES # (AUTO) 0.6 X 10^3 (0.0-1.0); MONOCYTES % (AUTO) 6 % (0-12); NEUTROPHILS # (AUTO) 6.4 X 10^3 (1.8-7.8); NEUTROPHILS % (AUTO) 63 % (42-75); PLATELET COUNT 311 10^3/uL (130-400); TOTAL PROTEIN 7.2 GM/DL (6.4-8.2); WHITE BLOOD COUNT 10.1 10^3/uL (4.3-11.0)
[2021-03-08 15:28] LABS: BILIRUBIN,TOTAL 0.2 MG/DL (0.1-1.0)
[2021-03-08 15:30] LABS: CREATININE SERUM 0.66 MG/DL (0.60-1.30)
--- NOTE | 2021-03-08 15:57 | Diagnostic Imaging Report ---
INDICATION: Chest pain. EXAMINATION: Chest, 03/08/2021. FINDINGS: Single view chest. The cardiomediastinal silhouette is unremarkable. The pulmonary vasculature is within normal limits. The lungs and pleural spaces are clear. IMPRESSION: No evidence of an acute cardiopulmonary process. Dictated by: Dictated on workstation # [id number]
[2021-03-08] MEDS ORDERED: KETOROLAC 30 MG/ML VIAL IVP STA (17:00)
[2021-03-08] MEDS ORDERED: HOLD METFORMIN - RECEIVED CONTRAST 20 ML VIAL IV SCH (17:15)
[2021-03-08] MEDS ORDERED: CATHETER FLUSH 10 ML SYR IV PRN (17:15)
[2021-03-08] MEDS ORDERED: NS 100 ML (IVPB) BAG IV ONE (17:15)
[2021-03-08] MEDS ORDERED: IOHEXOL 350 MG/ML 100 ML (OMNIPAQUE 350) VIAL IV ONE (17:15)
--- NOTE | 2021-03-08 17:26 | Diagnostic Imaging Report ---
EXAMINATION: CT angiography of the chest. TECHNIQUE: Contrast enhanced thin section helical images were obtained through the chest with intravenous contrast timed for the optimal opacification of the arterial structures per CTA protocol. Post-processing, reconstructions and interpretation of angiographic images of the vessels was performed. 3D MIP reconstructions were performed and reviewed. All CT scans use one or more of the following dose optimizing techniques: automated exposure control, MA and/or KvP adjustment based on a patient size and exam type, or iterative reconstruction. HISTORY: Chest pain and arm pain COMPARISON: 03/21/2014 FINDINGS: There is no pulmonary embolism. There is no edema or pneumonia. No pleural effusion. No pneumothorax. No suspicious nodules. There is no axillary or supraclavicular lymphadenopathy. There is no mediastinal lymphadenopathy. Heart size is normal. There are no coronary artery calcifications. No pericardial effusion. Aorta is normal in caliber. Limited views of the upper abdomen are unremarkable. There are no suspicious osseus lesions. IMPRESSION: 1. No pulmonary embolism, clear lungs Dictated by: Dictated on workstation # [id number]
[2021-03-08] MEDS ORDERED: ORPHENADRINE 60 MG/2 ML (NORFLEX) AMP (ED ONLY) IV STA (17:44)
[2021-03-08] MEDS ORDERED: PRD20T PO (17:47)
[2021-03-08 18:52] VITALS: BP 128/92
== END 2021-03-08 18:01 | disposition home or self-care (01) ==
LOC: EDUNIT# 14:36 → ER 14:38
DX: R07.89 Other chest pain (principal); M25.512 Pain in left shoulder; R51.9 Headache, unspecified; K21.9 Gastro-esophageal reflux disease without esophagitis; Z86.16 Personal history of COVID-19; Z79.899 Other long term (current) drug therapy
CPT/HCPCS: 36415; 71045; 71275; 80053; 83735; 83874; 85025; 85379; 85610; 85730; 93005; 93041; 96374; 96375

== ENCOUNTER → 2021-03-30 | Outpatient (CLI) | payer BC | LOC: CARD 14:00 | PROVIDERS: ATTEND Internal Medicine Cardiovascular Disease | DX: R07.9 Chest pain, unspecified (principal) | CPT/HCPCS: 93306 ==

== ENCOUNTER 2021-04-26 09:00 | Outpatient (RCR) | payer BC ==
--- NOTE | 2021-05-24 11:59 | 30 Day Event Recorder ---
30-DAY EVENT RECORDER 30-DAY EVENT RECORDER DATE OF PROCEDURE: 04/26/2021-05/03/2021. INDICATION: Palpitation. PROCEDURE: A 30-day event recorder was obtained for a total of 7 days. 29 rhythm strips were presented for review. The study quality is adequate. RESULTS: 1. The baseline tracing demonstrates sinus rhythm at a heart rate of 78 bpm. 2. During this study the patient was in sinus rhythm with intermittent sinus bradycardia and sinus tachycardia with heart rates ranging from 46-148 bpm with no significant arrhythmias identified. 3. There were 15 patient triggered events that correlated to sinus rhythm and sinus tachycardia with heart rates ranging from 62-148 bpm with no arrhythmias. If the patient was at rest during the episodes of sinus tachycardia, this finding could represent syndrome of inappropriate tachycardia. IMPRESSION: 1. This is a 30-day event recorder that was obtained for total of 7 days. 2. During this study the patient was in sinus rhythm with intermittent sinus bradycardia and sinus tachycardia with heart rates ranging from 46-148 bpm with no significant arrhythmias identified. 3. There were 15 patient triggered events that correlated to sinus rhythm and sinus tachycardia with heart rates ranging from 62-148 bpm with no arrhythmias. If the patient was at rest during the episodes of sinus tachycardia, this finding could represent syndrome of inappropriate tachycardia. Certain portions of this document may have been dictated utilizing voice recognition technology. Inherent to this technology, typographical and grammatical errors may exist. As much as I am diligent to identify and correct these mistakes, some errors may remain in the document. CARLOS ELENA JR, MD May 24, 2021 11:59
[2021-06-06] MEDS ORDERED: FLUT9.9S NS (11:15)
[2021-06-06] MEDS ORDERED: FEXO180T84 PO (11:15)
[2021-06-06] MEDS ORDERED: MONT-40 PO (11:15)
[2021-06-06] MEDS ORDERED: PANT40TA52 PO (11:15)
== END 2021-06-08 ==
LOC: CARD 09:00
PROVIDERS: ATTEND Internal Medicine Cardiovascular Disease
DX: R00.2 Palpitations (principal)
CPT/HCPCS: 93270

== ENCOUNTER → 2021-06-04 | Outpatient (CLI) | payer BC ==
[~2021-06-04] MED LIST changes: +FEXO180T84 PO; +FLUT9.9S NS; +MONT-40 PO; +PANT40TA52 PO; +RT-ALBUTEROL SULF 2.5 MG/3 ML PRE-MIX VIAL INH ONE
== END ==
LOC: RT 13:00
PROVIDERS: ATTEND Internal Medicine Cardiovascular Disease
DX: R06.00 Dyspnea, unspecified (principal)
CPT/HCPCS: 94060; 94621; 94726; 94729

== ENCOUNTER 2021-06-07 05:27 | Outpatient (RCR) | payer BC ==
[~2021-06-07] VITALS: Ht 177.8 cm; Wt 116.6 kg
[~2021-06-07 05:27] MED LIST changes: -RT-ALBUTEROL SULF 2.5 MG/3 ML PRE-MIX VIAL INH ONE
== END 2021-06-07 08:59 | disposition home or self-care (01) ==
LOC: PREOP 05:27
PROVIDERS: ATTEND Surgery
DX: Z01.812 Encounter for preprocedural laboratory examination (principal); R10.13 Epigastric pain; Z20.822 Contact with and (suspected) exposure to COVID-19
CPT/HCPCS: 87635

== ENCOUNTER 2021-06-12 12:37 | Day surgery (SDC) | payer BC ==
[~2021-06-12] VITALS: Ht 178 cm; Wt 117.0 kg
[2021-06-12] MEDS ORDERED: LACTATED RINGERS 1,000 ML IV ONE (12:39)
[2021-06-12] MEDS ORDERED: LACTATED RINGERS 1,000 ML IV STA (12:40)
[2021-06-12] MEDS ORDERED: HURRICAINE EXT TUBE (BENZOCAINE) XX PRN (12:45)
--- NOTE | 2021-06-12 12:50 | Progress Note-Pre Operative ---
Pre-Operative Progress Note H&P Reviewed The H&P was reviewed, patient examined and no changes noted. Date Seen by Provider: Jun 12, 2021 Time Seen by Provider: 12:50 Date H&P Reviewed: Jun 12, 2021 Time H&P Reviewed: 12:50 Pre-Operative Diagnosis: epigastric abd pain ALFREDO CENTENO DO Jun 12, 2021 12:50
[2021-06-12 13:05] VITALS: BP 129/113
[2021-06-12] MEDS ORDERED: proPOfol 200 MG/20 ML (DIPRIVAN) VIAL IV ONE ×2 (13:28→13:36)
--- NOTE | 2021-06-12 13:42 | Progress Note-Post Operative ---
Post-Operative Progess Note Surgeon (s)/Drop Board Worker (s) Surgeon ALFREDO CENTENO DO Drop Board Worker: NA Pre-Operative Diagnosis epigastric abd pain Post-Operative Diagnosis slight gastritis Procedure & Operative Findings Date of Procedure 06/12/21 Procedure Performed/Findings EGD with biopsies Anesthesia Type per MANAGER SAFE Estimated Blood Loss Estimated blood loss (mL): scant Specimens/Packing Specimens Removed antrum, body, ge ALFREDO CENTENO DO Jun 12, 2021 13:42
--- NOTE | 2021-06-12 13:44 | Discharge Inst-Simple/Standard ---
Discharge Inst-Standard Patient Instructions/Follow Up Plan of Care/Instructions/FU: 2 weeks Mimi Activity as Tolerated: Yes Discharge Diet: Regular Diet ALFREDO CENTENO DO Jun 12, 2021 13:44
[2021-06-12 13:45] VITALS: BP 135/72
[2021-06-12 13:50] VITALS: BP 108/54
--- NOTE | 2021-06-12 13:53 | Anesthesia-General Post-Op ---
MAC Patient Condition Mental Status/LOC: Same as Preop Cardiovascular: Satisfactory Nausea/Vomiting: Absent Respiratory: Satisfactory Pain: Controlled Complications: Absent Post Op Complications Complications None Follow Up Care/Instructions Patient Instructions None needed. Anesthesiology Discharge Order Discharge Order Patient is doing well, no complaints, stable vital signs, no apparent adverse anesthesia problems. No complications reported per nursing. PATRICIA CHANDLER CRNA Jun 12, 2021 13:53
[2021-06-12 14:05] VITALS: BP 108/72
[2021-06-12 14:18] VITALS: BP 108/72
--- NOTE | 2021-06-12 17:55 | OPERATIVE REPORT ---
DATE OF SERVICE: 06/12/2021 PREOPERATIVE DIAGNOSIS: Epigastric abdominal pain. POSTOPERATIVE DIAGNOSIS: Slight gastritis. PROCEDURE PERFORMED: EGD with biopsies. SURGEON: Alfredo Le DO. ANESTHESIA: Per CHIP LOFT WORKER. ESTIMATED BLOOD LOSS: Scant. COMPLICATIONS: None. INDICATIONS FOR PROCEDURE: The patient is a 25-year-old female, who has been having epigastric abdominal pain. She understands risks and benefits of the procedure and wishes to proceed. Consent was signed in the chart. DESCRIPTION OF PROCEDURE: The patient was taken to the endoscopy suite and placed in a left lateral recumbent position. A timeout was performed. Scope was inserted in mouth, down the esophagus, stomach and into the duodenum without difficulty. There were no polyps, masses or ulcerations within the duodenum. Scope was slowly retracted back into the stomach, where it was further insufflated. Evidence of some slight gastritis was present. Biopsy of the antrum was obtained. Biopsy of the body was obtained. Scope was retroflexed noting no other pathology. Scope was returned to its normal position, slowly withdrawn to the distal esophagus. Biopsy of the GE junction was obtained. Scope was then slowly retracted back. No polyps, masses or ulcerations. Scope was slowly retracted back until completely removed noting no other pathology. The patient tolerated the procedure well without any complications and taken to the recovery room in a stable condition. RECOMMENDATIONS: The patient will follow up on biopsies in two weeks. Further recommendations pending biopsy results. Continue on current medications. CC: GARY Mora - requested, unable to deliver. Job ID: [id number] DocumentID: [id number] Dictated Date: 06/12/2021 13:46:35 Licensed Practical Nurse Date: 06/12/2021 17:54:15 Dictated By: ALFREDO LE DO
== END 2021-06-12 14:17 | disposition home or self-care (01) ==
LOC: ENDO 12:37
PROVIDERS: ATTEND Surgery
DX: K29.50 Unspecified chronic gastritis without bleeding (principal); K21.9 Gastro-esophageal reflux disease without esophagitis; Z79.899 Other long term (current) drug therapy; Z87.891 Personal history of nicotine dependence; Z80.9 Family history of malignant neoplasm, unspecified
CPT/HCPCS: 88305

== ENCOUNTER → 2021-06-14 | Outpatient (CLI) | payer BC ==
[~2021-06-14] VITALS: Ht 172 cm; Wt 113.0 kg
[~2021-06-14] MED LIST changes: +CATHETER FLUSH 10 ML SYR IV PRN
[2021-06-14 09:14] VITALS: BP 121/79
--- NOTE | 2021-06-14 15:23 | NUCLEAR STRESS TEST ---
TREADMILL NUCLEAR STRESS TEST Date of procedure: 06/14/2021. Primary care provider: GARY Mora. Admitting physician: Laz Beltre Jr., MD. INDICATION: Chest pain. BASELINE ELECTROCARDIOGRAM: Sinus rhythm with low voltage in the precordial leads. STRESS TEST PROCEDURE: The patient was exercised for a total of 5 minutes and 0 seconds of the standard Solo protocol achieving a maximum MET level of 7. The resting heart rate was 67 bpm and the peak heart rate was 179 bpm, which represents 92% of the maximum predicted heart rate. The resting blood pressure was 132/91 mmHg and the peak blood pressure was 156/56 mmHg. This represents a normal heart rate and a normal blood pressure response to exercise. The test was stopped due to fatigue. There was no chest discomfort during the test. There were no arrhythmias during the test. There were no significant stress induced electrocardiogram changes. The patient exhibited fair exercise capacity for age. NUCLEAR PROCEDURE: The patient was administered 10.6 mCi of intravenous technetium 99m Tetrofosmin at rest for the rest images. The patient was subseq uently administered 30.3 mCi of intravenous technetium 99 M Tetrofosmin at peak stress for the stress images. Following an appropriate wait after each injection, imaging was obtained. The images were subsequently processed and reformatted in the usual views. Gated imaging was obtained. The image quality was adequate but with gastrointestinal and breast attenuation artifact. CT attenuation correction was used as a adjunct to standard imaging. Both the corrected and uncorrected images were reviewed for interpretation. NUCLEAR RESULTS: There was normal myocardial perfusion in all segments, other than breast attenuation artifact, without evidence of infarction or ischemia. There was normal left ventricular chamber size with an end-diastolic volume of 60 mL and an end-systolic volume of 20 mL. There was no evidence of transient ischemic dilatation. The TID ratio was 0.93. There was normal wall motion in all segments with a calculated ejection fraction of 66%. IMPRESSION: 1. Normal heart rate and blood pressure response to exercise. 2. There was no exercise-induced chest discomfort, arrhythmias, or electrocardiogram changes during the test. 3. The patient exhibited fair exercise capacity for age at 5 minutes of the Solo protocol. 4. There was normal myocardial perfusion in all segments, other than breast attenuation artifact, without evidence of infarction or ischemia. 5. There was normal wall motion in all segments with a calculated ejection fraction of 66%. Certain portions of this document may have been dictated utilizing voice recognition technology. Inherent to this technology, typographical and grammatical errors may exist. As much as I am diligent to identify and correct these mistakes, some errors may remain in the document. LAZ BELTRE JR, MD Jun 14, 2021 15:22
== END ==
LOC: CARD 08:15
PROVIDERS: ATTEND Internal Medicine Cardiovascular Disease
DX: R07.9 Chest pain, unspecified (principal)
CPT/HCPCS: 78452; 93017; A9502

== ENCOUNTER → 2021-06-21 | Outpatient (CLI) | payer BC ==
[~2021-06-21] MED LIST changes: -CATHETER FLUSH 10 ML SYR IV PRN
--- NOTE | 2021-06-21 08:52 | Diagnostic Imaging Report ---
EXAMINATION: US Abdomen limited. TECHNIQUE: Multiple real-time grayscale images were obtained over the right upper quadrant in various projections. REASON FOR EXAM: Epigastric pain. COMPARISON: 03/08/2021. FINDINGS: The liver is normal in size and shape. Increased echogenicity is seen throughout the liver. There are no focal lesions. No intrahepatic biliary dilatation is present. The common bile duct is not dilated and measures 4 mm. The main portal vein is hepatopetal. No ascites is seen in the upper abdomen. There is no evidence of cholelithiasis, gallbladder wall thickening or pericholecystic fluid. Sonographic Bleu's sign is negative. The visualized portion of the head of the pancreas are within normal limits. The body and tail of the pancreas are not well visualized due to overlying bowel gas. The visualized portions of the IVC and aorta appear normal. The right kidney measures approximately 11.1 cm in length and has a normal appearance. IMPRESSION: 1. Hepatic steatosis. No focal hepatic lesions. No ascites. 2. No evidence of cholelithiasis or acute cholecystitis. Dictated by: Dictated on workstation # [id number]
== END ==
LOC: RAD 08:30
PROVIDERS: ATTEND Surgery
DX: K76.0 Fatty (change of) liver, not elsewhere classified (principal)
CPT/HCPCS: 76705

== ENCOUNTER → 2021-06-25 | Outpatient (CLI) | payer BC ==
[~2021-06-25] MED LIST changes: +CATHETER FLUSH 10 ML SYR IV PRN
--- NOTE | 2021-06-25 14:19 | Diagnostic Imaging Report ---
INDICATION: Epigastric pain. Patient was administered 5.0 mCi technetium 99m Choletec intravenously and imaging of the abdomen was performed. At 1 hour patient ingested 8 ounces of Ensure and the gallbladder ejection fraction was calculated. There is homogeneous uptake of activity by the liver with prompt excretion of activity to the common duct and gallbladder. There is normal passage of activity into the small bowel. Gallbladder ejection fraction is abnormally low at 21%. Normal values are 33% or greater. IMPRESSION: 1. Patent cystic duct and common bile duct. 2. Low gallbladder ejection fraction of 21%. Dictated by: Dictated on workstation # [id number]
== END ==
LOC: CARD 10:00
PROVIDERS: ATTEND Surgery
DX: R10.13 Epigastric pain (principal)
CPT/HCPCS: 78227; A9537

== ENCOUNTER 2021-07-05 05:49 | Outpatient (CLI) | payer BC ==
[~2021-07-05] VITALS: Ht 175.3 cm; Wt 111.8 kg
[~2021-07-05 05:49] MED LIST changes: -CATHETER FLUSH 10 ML SYR IV PRN
== END 2021-07-07 10:50 | disposition home or self-care (01) ==
LOC: PREOP 05:49
PROVIDERS: ATTEND Surgery
DX: Z01.818 Encounter for other preprocedural examination (principal)

== ENCOUNTER 2021-07-12 08:50 | Day surgery (SDC) | payer BC ==
[2021-07-12] VITALS (11 sets, daily range): BP systolic 121–140; BP diastolic 73–92
[~2021-07-12] VITALS: Ht 175 cm; Wt 111.8 kg
[2021-07-12] MEDS ORDERED: CLINDAMYCIN 600 MG/50 ML IVPB 50 ML IV ONE (09:15)
[2021-07-12] MEDS: LACTATED RINGERS 1,000 ML IV PRN ×2 (09:39→11:00)
[2021-07-12] MEDS ORDERED: fentaNYL INJ 100 MCG/2 ML AMP ONE (09:56)
[2021-07-12] MEDS ORDERED: proPOfol 200 MG/20 ML (DIPRIVAN) VIAL IV ONE (09:56)
[2021-07-12] MEDS ORDERED: ONDANSETRON 4 MG/2 ML (SDV) Z0FRAN ONE (09:56)
[2021-07-12] MEDS ORDERED: LIDOCAINE PF 2% 5 ML (XYLOCAINE) VIAL ONE (09:56)
[2021-07-12] MEDS ORDERED: ROCURONIUM 50 MG/5 ML (ZEMURON) VIAL IV ONE (09:57)
[2021-07-12] MEDS ORDERED: MIDAZOLAM 2 MG/2 ML (VERSED) VIAL ONE (09:57)
--- NOTE | 2021-07-12 09:57 | Progress Note-Pre Operative ---
Pre-Operative Progress Note H&P Reviewed The H&P was reviewed, patient examined and no changes noted. Date Seen by Provider: Jul 12, 2021 Time Seen by Provider: 09:56 Date H&P Reviewed: Jul 12, 2021 Time H&P Reviewed: 09:56 Pre-Operative Diagnosis: biliary dyskinesia ALFREDO CENTENO DO Jul 12, 2021 09:57
[2021-07-12] MEDS ORDERED: LIDOCAINE/EPI 1%-1:200,000 (XYLOCAINE) 30 ML VIAL ONE (10:01)
[2021-07-12] MEDS ORDERED: NEOSTIGMINE 3 MG/3 ML VIAL ONE (11:09)
[2021-07-12] MEDS ORDERED: GLYCOPYRROLATE 0.2 MG/ML (ROBINUL) 2 ML VIAL ONE (11:09)
[2021-07-12] MEDS ORDERED: DOCU-143 PO (11:21)
[2021-07-12] MEDS ORDERED: ACHD5005 PO (11:21)
--- NOTE | 2021-07-12 11:22 | Discharge Inst-Simple/Standard ---
Discharge Inst-Standard Discharge Medications New, Converted or Re-Newed RX: Transmitted to Pharmacy Patient Instructions/Follow Up Plan of Care/Instructions/FU: 2 weeks lali Activity as Tolerated: No Discharge Diet: Regular Diet Other Inst to Patient Follow up Appt: Make appointment for 2 weeks. Instructions: No lifting greater than 10 pounds. No strenuous activity. May shower in 24 hours, no tub bath or soaking. Use incentive spirometer at home as directed. No Smoking Skin/Wound Care: You have special glue over incision, it will fall off on it's own. Symptoms to Report: Appetite Changes, Extremity Discoloration, Numbness/Tingling, Swelling Increased, Bleeding Excessive, Eyesight Changes, Pain Increased, Urine Color Change, Constipation(Persistent), Fever over 101 degree F, Pain/Pressure in chest, Urinating Difficulty, Cough Up/Vomit Blood, Heart Beat Irreg/Pounding, Pain/Pressure in jaw, Vaginal Bleeding Increase, Cramps in feet or legs, Lightheadedness, Pain/Pressure in shoulder, Diarrhea(Persistent), Memory Changes Suddenly, Questions/Concerns, Weight gain consecutive days, Dizziness/Fainting, Nausea/Vomiting, Shortness of Breath, Weight gain over 2 pounds. If eyes or skin turn yellow notify physician. If questions or concerns contact your physician Or seek help at emergency department. ALFREDO CENTENO DO Jul 12, 2021 11:22
--- NOTE | 2021-07-12 11:24 | Progress Note-Post Operative ---
Post-Operative Progess Note Surgeon (s)/Dispute Resolution Analyst (s) Surgeon ALFREDO CENTENO DO Dispute Resolution Analyst: Dr. Cross to assist in retraction dissection and closure Pre-Operative Diagnosis biliary dyskinesia Post-Operative Diagnosis same Procedure & Operative Findings Date of Procedure 07/12/21 Procedure Performed/Findings PROCEDURE: Laparoscopic cholecystectomy with intraoperative cholangiogram. COMPLICATIONS: None. PROCEDURE: The patient was taken to the operating suite and was prepped and draped in sterile fashion. A surgical pause was performed. Just superior to the umbilicus, a 12 mm incision was made. Dissection was taken down to the fascia, which was then scored and grasped with a Shaunna and the abdomen was then entered. A 0 Vicryl suture was placed in a [id number] fashion and a Serrano trocar was placed and secured. Pneumoperitoneum was achieved. A 5mm trochar place in the subxyphoid and 2 in the right upper quadrant. The gallbladder was then grasped and elevated. Multiple adhesions to the gallbladder which were dissected off the gallbladder. The cystic duct, and cystic artery were then dissected out. Clip was placed on the distal portion of the cystic duct which was then partially transected. An arrow catheter was inserted into the duct. The cholangiogram was then performed. No filing defects and contrast made its way into the duodenum. Catheter removed. Clips were placed on proximal portion of the cystic duct and then the duct was then transected. Clips were placed along the proximal and distal portion of the cystic artery which was then transected. Hook cautery was used to dissect the gallbladder from the gallbladder fossa achieving hemostasis. The gallbladder was placed in an Endobag and removed through the 12 mm trocar site. The abdomen was then reinspected. Copious amounts of irrigation were used to irrigate the abdomen and there were no signs of active bleeding. Hemostasis had been achieved. The 12 mm fascial defect was then closed with 0 Vicryl suture that had been placed in a [id number] fashion. The abdomen was then desufflated, the trocars were removed. The abdomen was then washed and dried. The skin was then closed using 4-0 Monocryl in a subcuticular fashion. The abdomen was washed and dried and Skin Affix was place over incisions. Patient tolerated the procedure well without any complications and was taken to the recovery room in stable condition. Anesthesia Type general Estimated Blood Loss Estimated blood loss (mL): minimal Specimens/Packing Specimens Removed gallbladder ALFREDO CENTENO DO Jul 12, 2021 11:24
[2021-07-12] MEDS ORDERED: SEVOFLURANE (ULTANE) 15 ML INHAL SOLN ONE (11:25)
--- NOTE | 2021-07-12 11:30 | Diagnostic Imaging Report ---
INDICATION: Fluoroscopy during intraoperative cholangiogram. Fluoroscopy was provided in the OR during intraoperative cholangiogram. Twenty seconds of fluoroscopic time was utilized. 35 images were obtained. Images demonstrate contrast being injected via the cystic duct remnant. Intrahepatic and extrahepatic bile ducts are normal caliber. No filling defects are seen to suggest retained stone. There does appear to be some contrast extending into the duodenum. IMPRESSION: Fluoroscopy during intraoperative cholangiogram. Dictated by: Dictated on workstation # [id number]
[2021-07-12] MEDS ORDERED: PROMETHAZINE INJ 25 MG/ML (PHENERGAN) AMP ONE (11:36)
[2021-07-12] MEDS ORDERED: HYDROmorphone 2 MG/ML VIAL (DILAUDID) ONE (11:36)
[2021-07-12] MEDS ORDERED: PROMETHAZINE INJ 25 MG/ML (PHENERGAN) AMP IVP ONE (11:45)
[2021-07-12] MEDS ORDERED: MEPERIDINE (DEMEROL) INJ 50 MG/ML IVP ONE (11:45)
[2021-07-12] MEDS ORDERED: HYDROmorphone 2 MG/ML VIAL (DILAUDID) IV ONE (11:45)
[2021-07-12] MEDS ORDERED: fentaNYL INJ 100 MCG/2 ML AMP IVP ONE (11:45)
[2021-07-12] MEDS: ONDANSETRON 4 MG/2 ML (SDV) Z0FRAN IVP PRN ×2 (12:21→13:37)
--- NOTE | 2021-07-12 12:37 | Anesthesia-General Post-Op ---
General Patient Condition Mental Status/LOC: Same as Preop Cardiovascular: Satisfactory Nausea/Vomiting: Absent Respiratory: Satisfactory Pain: Controlled Complications: Absent Post Op Complications Complications None Follow Up Care/Instructions Patient Instructions None needed. Anesthesia/Patient Condition Patient Condition Patient is doing well, no complaints, stable vital signs, no apparent adverse anesthesia problems. No complications reported per nursing. PATRICIA CHANDLER CRNA Jul 12, 2021 12:37
[2021-07-12] MEDS ORDERED: HYDROcodone/APAP 5 MG/325 MG (LORTAB) TAB PO ONE (12:45)
[2021-07-12] MEDS ORDERED: HYDROcodone/APAP 5 MG/325 MG (LORTAB) TAB ONE (12:46)
== END 2021-07-12 13:40 | disposition home or self-care (01) ==
LOC: SDC 08:50
PROVIDERS: ATTEND Surgery
DX: K81.1 Chronic cholecystitis (principal); K21.00 Gastro-esophageal reflux disease with esophagitis, without bleeding; Z87.891 Personal history of nicotine dependence; Z79.899 Other long term (current) drug therapy
CPT/HCPCS: 76000; 87081

== ENCOUNTER → 2022-11-07 | Outpatient (CLI) | payer BC, OTHER ==
[~2022-11-07] MED LIST changes: +ACHD5005 PO; +DOCU-143 PO
[2022-11-07 08:02] LABS: BASOPHILS # (AUTO) 0.1 10^3/uL (0.0-0.1); BASOPHILS % (AUTO) 1 % (0-10); EOSINOPHILS # (AUTO) 0.1 10^3/uL (0.0-0.3); EOSINOPHILS % (AUTO) 2 % (0-10); HEMATOCRIT 39 % (35-52); HEMOGLOBIN 12.6 g/dL (11.5-16.0); LYMPHOCYTES # (AUTO) 2.3 10^3/uL (1.0-4.0); LYMPHOCYTES % (AUTO) 38 % (12-44); MEAN CORPUSCULAR HEMOGLOBIN 28 pg (25-34); MEAN CORPUSCULAR HGB CONC 32 g/dL (32-36); MEAN CORPUSCULAR VOLUME 85 fL (80-99); MEAN PLATELET VOLUME 11.9 fL (9.0-12.2); MONOCYTES # (AUTO) 0.5 10^3/uL (0.0-1.0); MONOCYTES % (AUTO) 8 % (0-12); NEUTROPHILS # (AUTO) 3.1 10^3/uL (1.8-7.8); NEUTROPHILS % (AUTO) 51 % (42-75); PLATELET COUNT 229 10^3/uL (130-400)
[2022-11-07 08:24] LABS: ALBUMIN 3.9 GM/DL (3.2-4.5); POTASSIUM 3.7 MMOL/L (3.6-5.0)
[2022-11-07 08:26] LABS: CALCIUM 9.2 MG/DL (8.5-10.1)
[2022-11-07 08:27] LABS: TOTAL PROTEIN 6.9 GM/DL (6.4-8.2)
[2022-11-07 08:28] LABS: BILIRUBIN,TOTAL 0.5 MG/DL (0.1-1.0)
[2022-11-07 08:31] LABS: CREATININE SERUM 0.77 MG/DL (0.60-1.30)
[2022-11-07 09:03] LABS: ERYTHROCYTE SEDIMENTATION RATE 15 MM/HR (0-20)
== END ==
LOC: LAB 07:33
PROVIDERS: ATTEND Physician Assistant
DX: Z28.21 Immunization not carried out because of patient refusal (principal); K52.9 Noninfective gastroenteritis and colitis, unspecified
CPT/HCPCS: 36415; 80053; 82150; 82784; 83516; 83520; 83690; 85025; 85652; 86141

== ENCOUNTER → 2022-11-18 | Outpatient (CLI) | payer OTHER ==
--- NOTE | 2022-11-18 09:55 | Diagnostic Imaging Report ---
INDICATION: PROCEDURE: Ultrasound abdomen complete. TECHNIQUE: Multiple real-time grayscale images were obtained of the abdomen in various projections. INDICATION: Right upper quadrant pain, nausea, and vomiting. FINDINGS: The liver is normal in size. There is hepatopedal flow in the main portal vein. Gallbladder is surgically absent. The common bile duct is not well-seen due to bowel gas. Pancreas is also obscured by bowel gas. Spleen is unremarkable. The aorta is nonaneurysmal. The IVC is patent. Kidneys are normal. There is no ascites. IMPRESSION: Technically limited exam due to bowel gas, however, is essentially unremarkable. Dictated by: Dictated on workstation # [id number]
== END ==
LOC: RAD 08:00
PROVIDERS: ATTEND Physician Assistant
DX: K52.9 Noninfective gastroenteritis and colitis, unspecified (principal)
CPT/HCPCS: 76700

== ENCOUNTER → 2022-11-27 | Outpatient (CLI) | payer OTHER ==
[2022-11-27 13:03] LABS: ALBUMIN 4.2 GM/DL (3.2-4.5); BILIRUBIN,DIRECT 0.2 MG/DL (0.0-0.3); BILIRUBIN,INDIRECT 0.4 MG/DL; BILIRUBIN,TOTAL 0.6 MG/DL (0.1-1.0); TOTAL PROTEIN 7.4 GM/DL (6.4-8.2)
[2022-11-27 21:39] LABS: HEPATITIS C ANTIBODY C Non-Reactive (Non-Reactive)
== END ==
LOC: LAB 12:26
PROVIDERS: ATTEND Physician Assistant
DX: R79.89 Other specified abnormal findings of blood chemistry (principal); R10.11 Right upper quadrant pain
CPT/HCPCS: 36415; 80074; 80076

== ENCOUNTER → 2023-01-16 | Outpatient (CLI) | payer OTHER ==
[2023-01-16 09:54] LABS: BASOPHILS # (AUTO) 0.1 10^3/uL (0.0-0.1); BASOPHILS % (AUTO) 1 % (0-10); EOSINOPHILS # (AUTO) 0.1 10^3/uL (0.0-0.3); EOSINOPHILS % (AUTO) 1 % (0-10); HEMATOCRIT 44 % (35-52); HEMOGLOBIN 14.1 g/dL (11.5-16.0); LYMPHOCYTES # (AUTO) 2.4 10^3/uL (1.0-4.0); LYMPHOCYTES % (AUTO) 36 % (12-44); MEAN CORPUSCULAR HEMOGLOBIN 28 pg (25-34); MEAN CORPUSCULAR HGB CONC 32 g/dL (32-36); MEAN CORPUSCULAR VOLUME 87 fL (80-99); MEAN PLATELET VOLUME 12.2 fL (9.0-12.2); MONOCYTES # (AUTO) 0.5 10^3/uL (0.0-1.0); MONOCYTES % (AUTO) 7 % (0-12); NEUTROPHILS # (AUTO) 3.7 10^3/uL (1.8-7.8); NEUTROPHILS % (AUTO) 55 % (42-75); PLATELET COUNT 242 10^3/uL (130-400); WHITE BLOOD COUNT 6.7 10^3/uL (4.3-11.0)
[2023-01-16 10:02] LABS: ALBUMIN 4.2 GM/DL (3.2-4.5); POTASSIUM 4.1 MMOL/L (3.6-5.0)
[2023-01-16 10:03] LABS: CALCIUM 9.6 MG/DL (8.5-10.1)
[2023-01-16 10:06] LABS: BILIRUBIN,TOTAL 0.4 MG/DL (0.1-1.0)
[2023-01-16 10:08] LABS: CREATININE SERUM 0.84 MG/DL (0.60-1.30)
[2023-01-16 10:40] LABS: ERYTHROCYTE SEDIMENTATION RATE 11 MM/HR (0-20)
== END ==
LOC: LAB 09:32
DX: K92.1 Melena (principal); R79.89 Other specified abnormal findings of blood chemistry
CPT/HCPCS: 36415; 80053; 82105; 85025; 85652

== ENCOUNTER 2023-01-20 09:53 | Emergency (ER) | payer OTHER ==
[~2023-01-20] VITALS: Ht 175 cm; Wt 93.0 kg
[2023-01-20] MEDS ORDERED: NS IV 1000 ML 1,000 ML IV STA (10:17)
--- NOTE | 2023-01-20 10:22 | ED Abdominal Pain ---
General Chief Complaint: Abdominal/GI Problems Stated Complaint: ABD PAIN | BLOODY STOOL Nursing Triage Note: PT AMB TO RM 6 PT CO OF ABD PAIN /, NAUSEA, SULFA BURPS, HAD BLOODY STOOLS FOR 10 DAYS AND HAS STOPPED BUT JUST HAVING MUCOUSY STOOLS. PT HAS HX OF ABD PAIN. PT IS SCHEDULED FOR EGD AND COLONOSCOPY IN FEB. PT STATES DROPPED OFF STOOL SPECIMEN FOR LABS THIS AM Source of Information: Patient, Old Records Exam Limitations: No Limitations History of Present Illness Date Seen by Provider: Jan 20, 2023 Time Seen by Provider: 09:55 Initial Comments 27-year-old female with past medical history of chronic abdominal pain coming in due to acute on chronic abdominal pain and bloody stools. She has had right- sided abdominal pain for few years, has had her gallbladder taken out as well as a hysterectomy for endometriosis. She is now following with a GI specialist and plans to have an upper and lower GI scope soon. She started having intermittent bloody stools with flecks of blood in it for the past 10 days. Her GI doctor ordered labs which were done last week and a stool sample which she dropped off today. She has had nausea, no chest pain, shortness of breath, weakness, numbness, dysuria, or any other concerns. Allergies and Home Medications Allergies Coded Allergies: Cephalexin Monohydrate (Unverified Adverse Reaction, Intermediate, 03/01/12) amoxicillin (Unverified Adverse Reaction, Intermediate, rash, 03/01/12) Sulfa (Sulfonamide Antibiotics) (Unverified Adverse Reaction, Mild, 03/01/12) pertussis vaccine,adsorbed (Unverified Adverse Reaction, Mild, 03/01/12) ranitidine (Unverified Adverse Reaction, Mild, 03/01/12) Patient Home Medication List Home Medication List Reviewed: Yes Docusate Sodium (Colace) 100 Mg Capsule, 100 MG PO BID Prescribed by: ALFREDO CENTENO on 07/12/21 1121 Fexofenadine HCl (Shantelle Allergy) 180 Mg Tablet, 180 MG PO DAILY, (Reported) Entered as Reported by: KINGSLEY IBARRA on 06/06/21 1115 Fluticasone Propionate (Flonase Allergy Relief) 9.9 Ml Cameron.susp, 1 SPRAY NS DAILY, (Reported) Entered as Reported by: KINGSLEY IBARRA on 06/06/21 1115 Hydrocodone/Acetaminophen (Hydrocodone-Acetamin 5-325 mg) 1 Each Tablet, 1 EACH PO Q4H PRN for PAIN-MODERATE (5-7) Prescribed by: ALFREDO CENTENO on 07/12/21 1121 Norgestimate-Ethinyl Estradiol (Sprintec 28 Day Tablet) 1 Each Tablet, 1 EACH PO DAILY Prescribed by: DIONY ROBLERO on 12/21/16 0926 Pantoprazole Sodium (Pantoprazole Sodium) 40 Mg Tablet.dr, 40 MG PO DAILY, (Reported) Entered as Reported by: KINGSLEY IBARRA on 06/06/21 1115 Review of Systems Review of Systems Constitutional: No fever EENTM: No Symptoms Reported Respiratory: No Symptoms Reported Cardiovascular: No Symptoms Reported Gastrointestinal: See HPI Genitourinary: No Symptoms Reported Musculoskeletal: no symptoms reported Skin: no symptoms reported Psychiatric/Neurological: No Symptoms Reported Endocrine: No Symptoms Reported Hematologic/Lymphatic: No Symptoms Reported Past Kuvhttx-Kilnpi-Ghqwvg Hx Patient Social History Tobacco Use?: No Substance use?: No Alcohol Use?: No Pt feels they are or have been: No Immunizations Up To Date Tetanus Booster (TDap): Less than 5yrs PED Vaccines UTD: No First/Initial COVID19 Vaccinat: 02/09/21 Second COVID19 Vaccination Osmar: 02/09/21 Third COVID19 Vaccination Date: 02/09/21 Seasonal Allergies Seasonal Allergies: Yes Past Medical History Surgery/Hospitalization HX: HYST, GB, DEPRESSION,ANXIETY, ABDOMINAL ISSUES. 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) Neurological: No Vertigo Reproductive Disorders: Yes Female Reproductive Disorders: Denies [employer]ER History: IUD Sexually Transmitted Disease: No HIV/AIDS: No Bladder Infection Gastrointestinal: Yes Gastroesophageal Reflux Musculoskeletal: No Endocrine: No HEENT: No Cancer: No Psychosocial: Yes Anxiety, PTSD Integumentary: No Blood Disorders: No Family Medical History Alcoholism 19 FATHER Asthma 19 MOTHER Drug abuse 19 MOTHER Psychosocial problem 19 FATHER 19 MOTHER Thyroid disease G8 SISTER No Pertinent Family Hx Physical Exam Vital Signs Vital Signs - First Documented 01/20/23 09:59 Temp 36.2 Pulse 101 Resp 16 B/P (MAP) 115/86 (96) Pulse Ox 98 Capillary Refill : Less Than 3 Seconds Height/Weight/BMI Height: 5'9.00" Weight: 190lbs. 0.0oz. 86.959461ba; 30.00 BMI Method:Stated General Appearance: WD/WN, no apparent distress HEENT: PERRL/EOMI, normal ENT inspection, pharynx normal Neck: non-tender, full range of motion, supple, normal inspection Respiratory: chest non-tender, lungs clear, normal breath sounds, no respiratory distress, no accessory muscle use Cardiovascular: regular rate, rhythm, no edema, no murmur Gastrointestinal: normal bowel sounds, soft; No distended, No guarding, No rebound; tenderness Extremities: normal range of motion, non-tender, normal inspection, no pedal ed kaia, no calf tenderness, normal capillary refill Back: normal inspection, no CVA tenderness Neurologic/Psychiatric: no motor/sensory deficits, alert, normal mood/affect Skin: normal color, warm/dry Progress/Results/Core Measures Results/Orders Lab Results Laboratory Tests Test 01/20/23 10:10 Range/Units White Blood Count 14.0 H 4.3-11.0 10^3/uL Red Blood Count 5.29 H 3.80-5.11 10^6/uL Hemoglobin 14.7 11.5-16.0 g/dL Hematocrit 46 35-52 % Mean Corpuscular Volume 87 80-99 fL Mean Corpuscular Hemoglobin 28 25-34 pg Mean Corpuscular Hemoglobin Concent 32 32-36 g/dL Red Cell Distribution Width 13.9 10.0-14.5 % Platelet Count 248 130-400 10^3/uL Mean Platelet Volume 11.9 9.0-12.2 fL Immature Granulocyte % (Auto) 1 % Neutrophils (%) (Auto) 77 H 42-75 % Lymphocytes (%) (Auto) 17 12-44 % Monocytes (%) (Auto) 5 0-12 % Eosinophils (%) (Auto) 1 0-10 % Basophils (%) (Auto) 0 0-10 % Neutrophils # (Auto) 10.8 H 1.8-7.8 10^3/uL Lymphocytes # (Auto) 2.3 1.0-4.0 10^3/uL Monocytes # (Auto) 0.7 0.0-1.0 10^3/uL Eosinophils # (Auto) 0.1 0.0-0.3 10^3/uL Basophils # (Auto) 0.1 0.0-0.1 10^3/uL Immature Granulocyte # (Auto) 0.1 0.0-0.1 10^3/uL Sodium Level 138 135-145 MMOL/L Potassium Level 3.3 L 3.6-5.0 MMOL/L Chloride Level 103 98-107 MMOL/L Carbon Dioxide Level 24 21-32 MMOL/L Anion Gap 11 5-14 MMOL/L Blood Urea Nitrogen 8 7-18 MG/DL Creatinine 0.83 0.60-1.30 MG/DL Estimat Glomerular Filtration Rate 98 BUN/Creatinine Ratio 10 Glucose Level 85 70-105 MG/DL Calcium Level 9.6 8.5-10.1 MG/DL Corrected Calcium 9.3 8.5-10.1 MG/DL Total Bilirubin 0.6 0.1-1.0 MG/DL Aspartate Amino Transf (AST/SGOT) 88 H 5-34 U/L Alanine Aminotransferase (ALT/SGPT) 123 H 0-55 U/L Alkaline Phosphatase 114 40-136 U/L Total Protein 8.1 6.4-8.2 GM/DL Albumin 4.4 3.2-4.5 GM/DL Lipase 13 8-78 U/L My Orders Orders - JEANE SOUSA MD Comprehensive Metabolic Panel (01/20/23 10:17) Lipase (01/20/23 10:17) Ed Iv/Invasive Line Start (01/20/23 10:17) Cbc With Automated Diff (01/20/23 10:17) Ct Abdomen/Pelvis W (01/20/23 10:17) Droperidol Injection (Ed Only) (Droperid (01/20/23 10:30) Diphenhydramine Injection (Diphenhydram (01/20/23 10:30) Ns Iv 1000 Ml (Sodium Chloride 0.9%) (01/20/23 10:17) Iohexol Injection (Omnipaque 350 Mg/Ml 1 (01/20/23 10:30) Received Contrast (Hold Metformin- Contr (01/20/23 10:30) Ns (Ivpb) 100 Ml (Sodium Chloride 0.9% 1 (01/20/23 10:30) Medications Given in ED Current Medications Medications Dose Ordered Sig/Fallon Route Start Time Stop Time Status Last Admin Dose Admin Diphenhydramine HCl 12.5 mg ONCE ONCE IVP 01/20/23 10:30 01/20/23 10:31 DC 01/20/23 10:23 12.5 MG Droperidol 1.25 mg ONCE ONCE IV 01/20/23 10:30 01/20/23 10:31 DC 01/20/23 10:23 1.25 MG Iohexol 100 ml ONCE ONCE IV 01/20/23 10:30 01/20/23 10:31 DC 01/20/23 10:44 80 ML Sodium Chloride 100 ml ONCE ONCE IV 01/20/23 10:30 01/20/23 10:31 DC 01/20/23 10:44 80 ML Vital Signs/I&O 01/20/23 09:59 Temp 36.2 Pulse 101 Resp 16 B/P (MAP) 115/86 (96) Pulse Ox 98 Blood Pressure Mean: 96 Progress Progress Note : Progress Note 27-year-old female with above history coming in due to acute on chronic right-sided abdominal pain. ABCs were intact and vitals were stable on presentation. She has tenderness on exam but no signs of peritonitis. An IV was placed and basic labs were obtained and were significant for mild leukocytosis, normal creatinine, slightly elevated AST and ALT which is similar to last week. CT abdomen pelvis negative for acute findings. I did do a rectal exam and her stool was brown which was reassuring. I then went to the lab and personally looked at the stool sample that she provided which was also a brown hard clump which is reassuring. On exam she did have a hemorrhoid, likely intermittently bleeds. She has no other red flags or concerns. Her hemoglobin is higher today than it was a week ago which is also reassuring. I will have her follow-up with GI as an outpatient which she has scheduled. I discussed with her it is possible with her history of endometriosis that there has been some that has been missed in her right upper quadrant and to keep that in the back of her mind if her work-up is unrevealing with a GI specialist. Diagnostic Imaging Diagonstic Imaging: CT (abd/pelvis) Comments [facility], [place] NAME: MILADIS [facility] REC#: [id number] PT STATUS: REG ER : 1995 PHYSICIAN: JEANE SOUSA MD ADMIT DATE: 01/20/23/ER Signed Date of Exam:01/20/23 CT ABDOMEN/PELVIS W CT ABDOMEN/PELVIS W TECHNIQUE: Multiple contiguous axial images were obtained through the abdomen and pelvis after administration of intravenous contrast. All CT scans use one or more of the following dose optimizing techniques: automated exposure control, MA and/or KvP adjustment based on patient size and exam type or iterative reconstruction. INDICATION: Right-sided abdominal pain, hematochezia. COMPARISON: None available. FINDINGS: Lower chest: The lung bases are clear. No pericardial or pleural effusion. Peritoneum: No free intraperitoneal air or fluid. Liver and biliary system: Diffuse low-attenuation liver is indicative of steatosis. No focal hepatic lesion. Cholecystectomy. Spleen and Pancreas: Spleen is normal. The pancreas enhances normally without mass lesion or peripancreatic inflammatory changes. Adrenals: Normal. tract: The kidneys enhance normally without suspicious mass or obstruction. Urinary bladder is distended without wall thickening. Hysterectomy. No adnexal mass. GI tract: Stomach is partially filled with air. No bowel obstruction. Fluid is present in portions of colon likely due to diarrhea. No pericolonic inflammatory change. Vasculature and Lymph nodes: Normal caliber aorta. No abdominal or pelvic lymphadenopathy. Musculoskeletal: No concerning osseous lesion. IMPRESSION: 1. Fluid-filled colon indicates diarrhea. No colitis or diverticulitis. 2. Diffuse hepatic steatosis. Dictated by: Dictated on workstation # [id number] Dict: 01/20/23 1049 Trans: 01/20/23 1052 [facility] [id number] Interpreted by: AWA RANGEL MD Electronically signed by: AWA RANGEL MD 01/20/23 1052 Departure Impression Primary Impression: Right lateral abdominal pain Additional Impression: Transaminitis Disposition: 01 HOME, SELF-CARE Condition: Stable Departure-Patient Inst. Decision time for Depature: 11:25 Referrals: DIONI RAMOS (PCP/Family) Primary Care Physician Patient Instructions: Abdominal Pain, Adult ED Add. Discharge Instructions: Your CT did not show any significant concerns today. Your ALT and AST which are your liver enzymes were slightly elevated today like they were last week. This needs to be redrawn in a month or so and followed up with a GI specialist that you are seeing. Nausea medicines were sent to your pharmacy. Scripts Ondansetron (Ondansetron Odt) 4 Mg Tab.rapdis 4 MG SL Q6H PRN for NAUSEA/VOMITING for 5 Days, #20 TAB Prov: JEANE SOUSA MD 01/20/23 Work/School Note: Work Release Form Date Seen in the Emergency Department: Jan 20, 2023 Return to Work: Jan 21, 2023 Restrictions: Return-No Vomiting(24hrs) JEANE SOUSA MD Jan 20, 2023 10:22
[2023-01-20 10:25] LABS: BASOPHILS # (AUTO) 0.1 10^3/uL (0.0-0.1); BASOPHILS % (AUTO) 0 % (0-10); EOSINOPHILS # (AUTO) 0.1 10^3/uL (0.0-0.3); EOSINOPHILS % (AUTO) 1 % (0-10); HEMATOCRIT 46 % (35-52); HEMOGLOBIN 14.7 g/dL (11.5-16.0); LYMPHOCYTES # (AUTO) 2.3 10^3/uL (1.0-4.0); LYMPHOCYTES % (AUTO) 17 % (12-44); MEAN CORPUSCULAR HEMOGLOBIN 28 pg (25-34); MEAN CORPUSCULAR HGB CONC 32 g/dL (32-36); MEAN CORPUSCULAR VOLUME 87 fL (80-99); MEAN PLATELET VOLUME 11.9 fL (9.0-12.2); MONOCYTES # (AUTO) 0.7 10^3/uL (0.0-1.0); MONOCYTES % (AUTO) 5 % (0-12); NEUTROPHILS # (AUTO) 10.8 10^3/uL (1.8-7.8); NEUTROPHILS % (AUTO) 77 % (42-75); PLATELET COUNT 248 10^3/uL (130-400)
[2023-01-20 10:27] LABS: ALBUMIN 4.4 GM/DL (3.2-4.5)
[2023-01-20 10:28] LABS: POTASSIUM 3.3 MMOL/L (3.6-5.0)
[2023-01-20 10:29] LABS: CALCIUM 9.6 MG/DL (8.5-10.1)
[2023-01-20 10:30] LABS: TOTAL PROTEIN 8.1 GM/DL (6.4-8.2)
[2023-01-20] MEDS ORDERED: HOLD METFORMIN - RECEIVED CONTRAST 20 ML VIAL IV SCH (10:30)
[2023-01-20] MEDS ORDERED: diphenhydrAMINE INJ 50 MG/ML VIAL IVP ONE (10:30)
[2023-01-20] MEDS ORDERED: NS 100 ML (IVPB) BAG IV ONE (10:30)
[2023-01-20] MEDS ORDERED: DroPERidol INJECTION 5 MG/2 ML (ED ONLY!) IV ONE (10:30)
[2023-01-20] MEDS ORDERED: IOHEXOL 350 MG/ML 100 ML (OMNIPAQUE 350) VIAL IV ONE (10:30)
[2023-01-20 10:32] LABS: BILIRUBIN,TOTAL 0.6 MG/DL (0.1-1.0)
[2023-01-20 10:34] LABS: CREATININE SERUM 0.83 MG/DL (0.60-1.30)
--- NOTE | 2023-01-20 10:54 | Diagnostic Imaging Report ---
CT ABDOMEN/PELVIS W TECHNIQUE: Multiple contiguous axial images were obtained through the abdomen and pelvis after administration of intravenous contrast. All CT scans use one or more of the following dose optimizing techniques: automated exposure control, MA and/or KvP adjustment based on patient size and exam type or iterative reconstruction. INDICATION: Right-sided abdominal pain, hematochezia. COMPARISON: None available. FINDINGS: Lower chest: The lung bases are clear. No pericardial or pleural effusion. Peritoneum: No free intraperitoneal air or fluid. Liver and biliary system: Diffuse low-attenuation liver is indicative of steatosis. No focal hepatic lesion. Cholecystectomy. Spleen and Pancreas: Spleen is normal. The pancreas enhances normally without mass lesion or peripancreatic inflammatory changes. Adrenals: Normal. tract: The kidneys enhance normally without suspicious mass or obstruction. Urinary bladder is distended without wall thickening. Hysterectomy. No adnexal mass. GI tract: Stomach is partially filled with air. No bowel obstruction. Fluid is present in portions of colon likely due to diarrhea. No pericolonic inflammatory change. Vasculature and Lymph nodes: Normal caliber aorta. No abdominal or pelvic lymphadenopathy. Musculoskeletal: No concerning osseous lesion. IMPRESSION: 1. Fluid-filled colon indicates diarrhea. No colitis or diverticulitis. 2. Diffuse hepatic steatosis. Dictated by: Dictated on workstation # [id number]
[2023-01-20] MEDS ORDERED: ONDA4TAB11 SL (11:19)
[2023-01-20 11:32] VITALS: BP 115/86
== END 2023-01-20 11:32 | disposition home or self-care (01) ==
LOC: EDUNIT# 09:53 → ER 09:54
DX: R10.9 Unspecified abdominal pain (principal); R74.01 Elevation of levels of liver transaminase levels; K92.1 Melena; D72.829 Elevated white blood cell count, unspecified; Z86.16 Personal history of COVID-19; Z87.19 Personal history of other diseases of the digestive system
CPT/HCPCS: 36415; 74177; 80053; 83690; 85025